=== PATIENT | female | born 1940 | race Caucasian/White ===

== ENCOUNTER 2021-07-26 10:07 | Inpatient (IN) | payer MEDICARE, BC ==
[~2021-07-26] VITALS: Ht 162.6 cm; Wt 71.6 kg
[2021-07-26] MEDS ORDERED: SODIUM CHLORIDE 0.9% 500 ML IV ONE (10:30)
[2021-07-26 11:28] LABS: Basophils # (auto) 0 10 ^3/uL (0-0.2); Basophils % (auto) 0.4 % (0.0-2.0); Eosinophils # (auto) 0 10 ^3/uL (0-0.8); Eosinophils % (auto) 0.2 % (0.0-7.0); Hemoglobin 12.5 g/dL (12.2-16.2); Lymphocytes # (auto) 0.8 10 ^3/uL (0.4-5.4); Lymphocytes % (auto) 6.7 % (10.0-50.0); Mean Corpuscular Hemoglobin 32.5 pg (28.0-32.0); Mean Corpuscular Hgb Conc. 32.8 g/dL (32.0-36.0); Mean Corpuscular Volume 99.1 fL (80.0-100.0); Monocytes # (auto) 1.1 10 ^3/uL (0-1.3); Monocytes % (auto) 8.8 % (0.0-12.0); Neutrophils # (auto) 10.3 10 ^3/uL (1.6-8.6); Neutrophils % (auto) 83.9 % (37.0-80.0); Nucleated Red Blood Cells % 0.1 %; Red Blood Cells 3.84 10^6/uL (4.0-5.20); Red Cell Distribution Width 13.4 % (11.8-14.3); White Blood Cell 12.2 10^3/uL (4.4-10.8)
[2021-07-26 11:42] LABS: Albumin 2.9 g/dL (3.4-5.0); Calcium 8.9 mg/dL (8.5-10.1); Potassium 3.9 mmol/L (3.5-5.1)
[2021-07-26 11:47] LABS: BUN/Creatinine Ratio 27.9; Bilirubin, Total 0.2 mg/dL (0.2-1.0); Total Protein 6.7 g/dL (6.4-8.2)
[2021-07-26] MEDS ORDERED: ENOXAPARIN SOD 60 MG/0.6 ML SYRINGE SC ONE (12:15)
[2021-07-26] MEDS ORDERED: MORPHINE SULFATE INJECTION 2 MG/ML SYRG IV PRN ×3 (14:30→15:30)
[2021-07-26] MEDS ORDERED: LACTATED RINGER'S 1,000 ML IV ONE (14:30)
[2021-07-26] MEDS ORDERED: NITROGLYCERIN 0.4 MG SL TAB SL PRN ×2 (14:30→15:30)
[2021-07-26] MEDS ORDERED: CLINDAMYCIN 600MG IV 50 ML IV ONE (15:30)
[2021-07-26] MEDS ORDERED: FAMOTIDINE (10MG/ML) 2ML VL IV ONE (15:30)
[2021-07-26] MEDS ORDERED: ONDANSETRON HCL 4 MG/2 ML VIAL IV PRN (15:30)
[2021-07-26] MEDS ORDERED: cefTRIAXone 1GM/50ML D5W 50 ML IV ONE (15:30)
[2021-07-26] MEDS ORDERED: DOCUSATE SOD 100 MG CAP PO PRN (15:30)
[2021-07-26] MEDS ORDERED: LORazepam 0.5 MG TAB PO PRN (15:30)
[2021-07-26] MEDS ORDERED: HYDROcodone-ACET 5/325MG TAB PO PRN (15:30)
[2021-07-26] MEDS ORDERED: METOPROLOL TARTRATE 25 MG TAB PO ONE (15:30)
[2021-07-26] MEDS ORDERED: ACETAMINOPHEN 325 MG TAB PO PRN (15:30)
[2021-07-26] MEDS ORDERED: ASPirin 81 mg TAB PO ONE (15:30)
[2021-07-26 17:22] LABS: Cholesterol 157 mg/dL (< 200); HDL Cholesterol 66 mg/dL (40-59); LDL Cholesterol 78 mg/dL (< 100); Triglycerides 46 mg/dL (< 150)
[2021-07-26] MEDS: IPRATROPIUM BROM 0.5 MG/2.5ML INH SOL NEB SCH ×2 (18:45→22:23)
[2021-07-26] MEDS: FAMOTIDINE (10MG/ML) 2ML VL IV SCH (21:27)
[2021-07-26] MEDS: SODIUM CHLORIDE 0.9% 1,000 ML IV SCH (21:27)
[2021-07-26] MEDS: CLINDAMYCIN 600MG IV 50 ML IV SCH (21:27)
[2021-07-26] MEDS: SODIUM BICARBONATE 650 MG TAB PO SCH (21:29)
[2021-07-26] MEDS: METOPROLOL TARTRATE 25 MG TAB PO SCH (21:30)
[2021-07-26] MEDS: ENOXAPARIN SOD 60 MG/0.6 ML SYRINGE SC SCH (21:30)
[2021-07-26] MEDS: hydrALAZINE HCL 20 MG/ML VL IV PRN (21:31)
[2021-07-26 21:37] VITALS: BP_SYST 135; BP_SYST 162; BP_DIAS 87; BP_DIAS 95
[2021-07-26 23:20] VITALS: BP 162/95
[2021-07-27] MEDS ORDERED: ALBUTEROL SULF 2.5 MG/0.5ML(0.5%) NEB SOLN NEB PRN (02:15)
[2021-07-27 05:30] VITALS: BP 136/55
[2021-07-27] MEDS: LEVOTHYROXINE SODIUM 25 MCG TAB PO SCH (06:16)
[2021-07-27] MEDS: LEVOTHYROXINE SODIUM 100 MCG TAB PO SCH (06:16)
[2021-07-27] MEDS: CLINDAMYCIN 600MG IV 50 ML IV SCH (06:16)
[2021-07-27] MEDS: SODIUM BICARBONATE 650 MG TAB PO SCH ×3 (06:16→21:19)
[2021-07-27 08:58] LABS: Basophils # (auto) 0 10 ^3/uL (0-0.2); Basophils % (auto) 0.6 % (0.0-2.0); Calcium 8.7 mg/dL (8.5-10.1); Eosinophils # (auto) 0 10 ^3/uL (0-0.8); Eosinophils % (auto) 0.5 % (0.0-7.0); Hematocrit 36.6 % (36.0-46.0); Hemoglobin 12.1 g/dL (12.2-16.2); Magnesium 1.6 mg/dL (1.6-2.6); Mean Corpuscular Hemoglobin 32.8 pg (28.0-32.0); Mean Corpuscular Hgb Conc. 33.2 g/dL (32.0-36.0); Mean Corpuscular Volume 98.8 fL (80.0-100.0); Monocytes # (auto) 0.6 10 ^3/uL (0-1.3); Monocytes % (auto) 8.4 % (0.0-12.0); Neutrophils % (auto) 75.5 % (37.0-80.0); Nucleated Red Blood Cells % 0.1 %; Potassium 4.1 mmol/L (3.5-5.1); Red Cell Distribution Width 13.5 % (11.8-14.3); White Blood Cell 6.6 10^3/uL (4.4-10.8)
[2021-07-27] MEDS ORDERED: cefTRIAXone 1GM/50ML D5W 50 ML IV SCH (09:00)
[2021-07-27 09:01] LABS: INR 1.08 (0.9-1.15); Partial Thromboplastin Time 27.5 sec (23.6-33.0)
[2021-07-27 09:04] LABS: Albumin 2.6 g/dL (3.4-5.0); BUN/Creatinine Ratio 22.8; Bilirubin, Total 0.4 mg/dL (0.2-1.0); Phosphorus 3.2 mg/dL (2.5-4.90); Total Protein 6.3 g/dL (6.4-8.2); Uric Acid 2.9 mg/dL (2.6-6.0)
[2021-07-27 09:09] VITALS: BP 152/64
[2021-07-27] MEDS ORDERED: ENOXAPARIN SOD 30 MG/0.3 ML SYRINGE SC SCH (10:00)
[2021-07-27] MEDS: FAMOTIDINE (10MG/ML) 2ML VL IV SCH ×2 (10:15→21:19)
[2021-07-27] MEDS: SODIUM CHLORIDE 0.9% 1,000 ML IV SCH (10:15)
[2021-07-27] MEDS: POTASSIUM CHLORIDE 8 MEQ TAB PO SCH (10:15)
[2021-07-27] MEDS: ASPirin 81 mg TAB PO SCH (10:15)
[2021-07-27] MEDS: ALLOPURINOL 100 MG TAB PO SCH (10:16)
[2021-07-27] MEDS: METOPROLOL TARTRATE 25 MG TAB PO SCH ×2 (10:16→21:36)
[2021-07-27] MEDS: ENOXAPARIN SOD 60 MG/0.6 ML SYRINGE SC SCH (10:16)
[2021-07-27] MEDS ORDERED: PIPERACILLIN-TAZOB 3.375GM 100 ML IV SCH (12:00)
[2021-07-27] MEDS: PIPERACILLIN-TAZOB 2.25GM 50 ML IV SCH ×2 (12:43→17:11)
[2021-07-27 12:45] VITALS: BP 150/70
[2021-07-27] MEDS: NIFEdipine 10 MG CAP PO SCH (12:46)
[2021-07-27 13:04] LABS: Urine Bacteria FEW /hpf (None Seen); Urine Blood Negative /uL (Negative); Urine Specific Gravity 1.013 (1.001-1.035); Urine WBC 1 /hpf (0 - 5)
[2021-07-27 13:24] LABS: Alcohol, Urine < 3.0 mg/dL (0-10); Amphetamine Screen, Urine NEGATIVE (NEGATIVE); Barbiturate Scree,Urine NEGATIVE (NEGATIVE); Benzodiazephine Screen, Urine NEGATIVE (NEGATIVE); Cannabinoid Screen, Urine NEGATIVE (NEGATIVE); Cocaine Screen, Urine NEGATIVE (NEGATIVE); Opiate Scree,Urine NEGATIVE (NEGATIVE); Phencyclidine Screen, Urine NEGATIVE (NEGATIVE)
[2021-07-27 16:35] VITALS: BP 114/54
[2021-07-27] MEDS ORDERED: MEMA1CAP2 PO (19:56)
[2021-07-27] MEDS ORDERED: SODI650T PO (19:56)
[2021-07-27] MEDS ORDERED: APIX5TAB PO (19:56)
[2021-07-27] MEDS ORDERED: NIFE-3 PO (19:56)
[2021-07-27] MEDS ORDERED: ASPI-543 PO (19:56)
[2021-07-27] MEDS ORDERED: POTA10TA51 PO (19:56)
[2021-07-27] MEDS ORDERED: LEVO125T7 PO (19:56)
[2021-07-27] MEDS ORDERED: ALEN70TA74 PO (19:56)
[2021-07-27] MEDS ORDERED: FEBU40TA PO (19:56)
[2021-07-27] MEDS: ENOXAPARIN SOD 80 MG/0.8ML SYRINGE SC SCH (21:19)
[2021-07-27 22:00] VITALS: BP 112/50
[2021-07-28] MEDS: SODIUM CHLORIDE 0.9% 1,000 ML IV SCH ×2 (00:50→18:13)
[2021-07-28] MEDS: PIPERACILLIN-TAZOB 2.25GM 50 ML IV SCH ×5 (00:58→23:55)
[2021-07-28 05:00] VITALS: BP 127/70
[2021-07-28] MEDS: SODIUM BICARBONATE 650 MG TAB PO SCH ×3 (06:09→21:46)
[2021-07-28] MEDS: LEVOTHYROXINE SODIUM 100 MCG TAB PO SCH (06:09)
[2021-07-28] MEDS: LEVOTHYROXINE SODIUM 25 MCG TAB PO SCH (06:09)
[2021-07-28 07:26] LABS: Basophils # (auto) 0 10 ^3/uL (0-0.2); Basophils % (auto) 0.8 % (0.0-2.0); Eosinophils # (auto) 0.1 10 ^3/uL (0-0.8); Eosinophils % (auto) 1.9 % (0.0-7.0); Hematocrit 36.7 % (36.0-46.0); Hemoglobin 12.3 g/dL (12.2-16.2); Lymphocytes # (auto) 0.8 10 ^3/uL (0.4-5.4); Lymphocytes % (auto) 18.9 % (10.0-50.0); Mean Corpuscular Hgb Conc. 33.5 g/dL (32.0-36.0); Mean Corpuscular Volume 98.5 fL (80.0-100.0); Monocytes # (auto) 0.4 10 ^3/uL (0-1.3); Monocytes % (auto) 10.2 % (0.0-12.0); Neutrophils # (auto) 2.8 10 ^3/uL (1.6-8.6); Neutrophils % (auto) 68.2 % (37.0-80.0); Nucleated Red Blood Cells % 0.1 %; Red Blood Cells 3.73 10^6/uL (4.0-5.20); Red Cell Distribution Width 13.4 % (11.8-14.3); White Blood Cell 4.1 10^3/uL (4.4-10.8)
[2021-07-28 07:35] LABS: Calcium 8.8 mg/dL (8.5-10.1); Magnesium 2.2 mg/dL (1.6-2.6); Potassium 4.4 mmol/L (3.5-5.1)
[2021-07-28 07:37] LABS: BUN/Creatinine Ratio 15.7
[2021-07-28 08:37] VITALS: BP 132/94
[2021-07-28] MEDS ORDERED: ENOXAPARIN SOD 40 MG/0.4 ML SYRINGE SC SCH (10:00)
[2021-07-28] MEDS: ASPirin 81 mg TAB PO SCH (10:10)
[2021-07-28] MEDS: FAMOTIDINE (10MG/ML) 2ML VL IV SCH ×2 (10:10→21:46)
[2021-07-28] MEDS: POTASSIUM CHLORIDE 8 MEQ TAB PO SCH (10:11)
[2021-07-28] MEDS: METOPROLOL TARTRATE 25 MG TAB PO SCH ×3 (10:13→21:29)
[2021-07-28] MEDS: NIFEdipine 10 MG CAP PO SCH (10:13)
[2021-07-28] MEDS: ALLOPURINOL 100 MG TAB PO SCH (10:14)
[2021-07-28] MEDS: ENOXAPARIN SOD 80 MG/0.8ML SYRINGE SC SCH ×2 (10:14→21:47)
[2021-07-28 17:00] VITALS: BP 157/69
[2021-07-28 22:00] VITALS: BP 139/72
[2021-07-29 05:00] VITALS: BP 157/71
[2021-07-29] MEDS: LEVOTHYROXINE SODIUM 25 MCG TAB PO SCH (06:08)
[2021-07-29] MEDS: PIPERACILLIN-TAZOB 2.25GM 50 ML IV SCH ×3 (06:08→18:55)
[2021-07-29] MEDS: SODIUM BICARBONATE 650 MG TAB PO SCH ×3 (06:08→22:26)
[2021-07-29] MEDS: LEVOTHYROXINE SODIUM 100 MCG TAB PO SCH (06:09)
[2021-07-29 06:32] LABS: Basophils # (auto) 0 10 ^3/uL (0-0.2); Basophils % (auto) 0.7 % (0.0-2.0); Eosinophils # (auto) 0.1 10 ^3/uL (0-0.8); Hematocrit 38.7 % (36.0-46.0); Hemoglobin 12.4 g/dL (12.2-16.2); Lymphocytes # (auto) 0.9 10 ^3/uL (0.4-5.4); Lymphocytes % (auto) 22.1 % (10.0-50.0); Mean Corpuscular Hemoglobin 32.7 pg (28.0-32.0); Mean Corpuscular Volume 102.1 fL (80.0-100.0); Monocytes # (auto) 0.5 10 ^3/uL (0-1.3); Monocytes % (auto) 11.5 % (0.0-12.0); Neutrophils # (auto) 2.6 10 ^3/uL (1.6-8.6); Neutrophils % (auto) 63.7 % (37.0-80.0); Nucleated Red Blood Cells % 0.1 %; Red Blood Cells 3.79 10^6/uL (4.0-5.20); Red Cell Distribution Width 14.1 % (11.8-14.3); White Blood Cell 4.1 10^3/uL (4.4-10.8)
[2021-07-29 07:06] LABS: Potassium 4.4 mmol/L (3.5-5.1)
[2021-07-29 07:13] LABS: BUN/Creatinine Ratio 12.5; Calcium 8.8 mg/dL (8.5-10.1)
[2021-07-29] MEDS ORDERED: OMNIPAQUE ORAL SOLN 500ml 12mg/ml PO ONE (08:12)
[2021-07-29 09:32] VITALS: BP 195/95
[2021-07-29] MEDS: SODIUM CHLORIDE 0.9% 1,000 ML IV SCH (10:10)
[2021-07-29] MEDS ORDERED: POTA10TA32 PO (14:12)
[2021-07-29 15:36] VITALS: BP 157/81
[2021-07-29] MEDS: NIFEdipine 10 MG CAP PO SCH (15:39)
[2021-07-29] MEDS: ASPirin 81 mg TAB PO SCH (15:39)
[2021-07-29] MEDS: ENOXAPARIN SOD 80 MG/0.8ML SYRINGE SC SCH ×2 (15:39→22:27)
[2021-07-29] MEDS: METOPROLOL TARTRATE 25 MG TAB PO SCH ×2 (15:40→22:28)
[2021-07-29] MEDS: POTASSIUM CHLORIDE 8 MEQ TAB PO SCH (15:43)
[2021-07-29] MEDS: ALLOPURINOL 100 MG TAB PO SCH (15:43)
[2021-07-29] MEDS: FAMOTIDINE (10MG/ML) 2ML VL IV SCH ×2 (15:44→22:27)
[2021-07-29 17:12] VITALS: BP 110/63
[2021-07-30 00:53] VITALS: BP 137/70
[2021-07-30] MEDS: PIPERACILLIN-TAZOB 2.25GM 50 ML IV SCH ×4 (01:29→20:11)
[2021-07-30 05:25] VITALS: BP 150/64
[2021-07-30] MEDS: SODIUM BICARBONATE 650 MG TAB PO SCH ×3 (06:36→21:58)
[2021-07-30] MEDS: LEVOTHYROXINE SODIUM 100 MCG TAB PO SCH (06:36)
[2021-07-30] MEDS: hydrALAZINE HCL 20 MG/ML VL IV PRN (06:37)
[2021-07-30] MEDS: LEVOTHYROXINE SODIUM 25 MCG TAB PO SCH (06:37)
[2021-07-30 08:43] VITALS: BP 154/70
[2021-07-30] MEDS: METOPROLOL TARTRATE 25 MG TAB PO SCH ×2 (10:19→21:59)
[2021-07-30] MEDS: ASPirin 81 mg TAB PO SCH (10:19)
[2021-07-30] MEDS: POTASSIUM CHLORIDE 8 MEQ TAB PO SCH (10:19)
[2021-07-30] MEDS: ALLOPURINOL 100 MG TAB PO SCH (10:20)
[2021-07-30] MEDS: ENOXAPARIN SOD 80 MG/0.8ML SYRINGE SC SCH ×2 (10:20→21:59)
[2021-07-30] MEDS: NIFEdipine 10 MG CAP PO SCH (10:20)
[2021-07-30 12:56] VITALS: BP 99/46
[2021-07-30 16:59] VITALS: BP 131/68
[2021-07-30 22:00] VITALS: BP 148/60
[2021-07-31] MEDS: PIPERACILLIN-TAZOB 2.25GM 50 ML IV SCH ×3 (01:20→13:30)
[2021-07-31 05:00] VITALS: BP 157/83
[2021-07-31] MEDS: hydrALAZINE HCL 20 MG/ML VL IV PRN (05:46)
[2021-07-31] MEDS: SODIUM BICARBONATE 650 MG TAB PO SCH (07:08)
[2021-07-31] MEDS: LEVOTHYROXINE SODIUM 100 MCG TAB PO SCH (07:08)
[2021-07-31] MEDS: LEVOTHYROXINE SODIUM 25 MCG TAB PO SCH (07:09)
[2021-07-31 09:00] VITALS: BP 144/75
[2021-07-31] MEDS: NIFEdipine 10 MG CAP PO SCH (10:00)
[2021-07-31] MEDS: ENOXAPARIN SOD 80 MG/0.8ML SYRINGE SC SCH (10:00)
[2021-07-31] MEDS: ASPirin 81 mg TAB PO SCH (10:52)
[2021-07-31] MEDS: POTASSIUM CHLORIDE 8 MEQ TAB PO SCH (10:53)
[2021-07-31] MEDS: METOPROLOL TARTRATE 25 MG TAB PO SCH (10:53)
[2021-07-31] MEDS: ALLOPURINOL 100 MG TAB PO SCH (10:54)
[2021-07-31 12:44] VITALS: BP 151/76
[2021-08-02] MEDS ORDERED: ALENDRONATE SODIUM 10 MG TAB PO SCH (15:30)
== END 2021-07-31 14:05 | disposition home or self-care (01) | DRG 872 ==
LOC: EDUNIT# 10:07 → EDBD 10:07 → ER 10:07 → TELE-CENTR 15:30 → CENTRAL 07-27 11:00
PROVIDERS: ADMIT Hospitalist; ATTEND Internal Medicine
DX: A41.9 Sepsis, unspecified organism (principal); K57.20 Diverticulitis of large intestine with perforation and abscess without bleeding; N17.9 Acute kidney failure, unspecified; I13.0 Hypertensive heart and chronic kidney disease with heart failure and stage 1 through stage 4 chronic kidney disease, or unspecified chronic kidney disease; R65.20 Severe sepsis without septic shock; F01.50 Vascular dementia, unspecified severity, without behavioral disturbance, psychotic disturbance, mood disturbance, and anxiety; I50.9 Heart failure, unspecified; Z20.822 Contact with and (suspected) exposure to COVID-19; E03.9 Hypothyroidism, unspecified; I48.0 Paroxysmal atrial fibrillation; M10.9 Gout, unspecified; M81.0 Age-related osteoporosis without current pathological fracture; I67.2 Cerebral atherosclerosis; N18.9 Chronic kidney disease, unspecified; E78.5 Hyperlipidemia, unspecified; M19.90 Unspecified osteoarthritis, unspecified site; E66.9 Obesity, unspecified; R42 Dizziness and giddiness; R54 Age-related physical debility; K42.9 Umbilical hernia without obstruction or gangrene; Z82.49 Family history of ischemic heart disease and other diseases of the circulatory system; Z83.3 Family history of diabetes mellitus; Z68.27 Body mass index [BMI] 27.0-27.9, adult
CPT/HCPCS: 36415; 70450; 71045; 74176; 80048; 80053; 80061; 80307; 81001; 82306; 83036; 83735; 83880; 83970; 84100; 84443; 84484; 84550; 85025; 85610; 85730; 87040; 87086; 87426; 93005; 93306; 93886; 96361; 96365; 96372; 99291; G0378; J0696; J2543; J3490

== ENCOUNTER 2021-10-19 07:37 | Inpatient (IN) | payer MEDICARE, BC ==
[~2021-10-19] VITALS: Ht 162.6 cm; Wt 80.2 kg
[~2021-10-19 07:37] MED LIST: ALEN70TA74 PO; APIX5TAB PO; ASPI-543 PO; FEBU40TA PO; LEVO125T7 PO; MEMA1CAP2 PO; NIFE-3 PO; POTA10TA32 PO; SODI650T PO
[2021-10-19 08:35] LABS: Basophils # (auto) 0 10 ^3/uL (0-0.2); Basophils % (auto) 0.2 % (0.0-2.0); Eosinophils # (auto) 0 10 ^3/uL (0-0.8); Hematocrit 34.8 % (36.0-46.0); Hemoglobin 11.3 g/dL (12.2-16.2); Lymphocytes # (auto) 0.5 10 ^3/uL (0.4-5.4); Lymphocytes % (auto) 4.7 % (10.0-50.0); Mean Corpuscular Hemoglobin 29.7 pg (28.0-32.0); Mean Corpuscular Hgb Conc. 32.6 g/dL (32.0-36.0); Mean Corpuscular Volume 91.2 fL (80.0-100.0); Monocytes # (auto) 0.8 10 ^3/uL (0-1.3); Monocytes % (auto) 7.5 % (0.0-12.0); Neutrophils # (auto) 9.3 10 ^3/uL (1.6-8.6); Neutrophils % (auto) 87.6 % (37.0-80.0); Red Blood Cells 3.82 10^6/uL (4.0-5.20); Red Cell Distribution Width 15.6 % (11.8-14.3); White Blood Cell 10.6 10^3/uL (4.4-10.8)
[2021-10-19 08:44] LABS: Albumin 2.5 g/dL (3.4-5.0); Calcium 8.8 mg/dL (8.5-10.1); Potassium 4.3 mmol/L (3.5-5.1)
[2021-10-19] MEDS ORDERED: SODIUM CHLORIDE 0.9% 1,000 ML IV ONE (08:45)
[2021-10-19 08:48] LABS: BUN/Creatinine Ratio 11.9; Bilirubin, Total 0.4 mg/dL (0.2-1.0)
[2021-10-19 09:25] LABS: Magnesium 1.6 mg/dL (1.6-2.6)
[2021-10-19] MEDS ORDERED: cefTRIAXone 1GM/50ML D5W 50 ML IV ONE (09:45)
[2021-10-19] MEDS ORDERED: metroNIDAZOLE 500MG/100ML 100 ML IV ONE (09:45)
[2021-10-19] MEDS ORDERED: HYDROmorphone HCL 2 MG/ML VL IV ONE (10:00)
[2021-10-19] MEDS ORDERED: PROMETHAZINE HCL 25 MG/ML 1ML IV ONE (10:00)
[2021-10-19 10:44] LABS: INR 1.26 (0.9-1.15); Partial Thromboplastin Time 32.6 sec (23.6-33.0)
[2021-10-19] MEDS ORDERED: HYDROmorphone HCL 2 MG/ML VL IV PRN (11:30)
[2021-10-19] MEDS ORDERED: DOCUSATE SOD 100 MG CAP PO PRN (11:30)
[2021-10-19] MEDS ORDERED: ATORVASTATIN 20 MG TAB PO ONE (11:30)
[2021-10-19] MEDS ORDERED: CARVEDILOL 3.125 MG TAB PO ONE (11:30)
[2021-10-19] MEDS ORDERED: ACETAMINOPHEN 325 MG TAB PO PRN (11:30)
[2021-10-19] MEDS ORDERED: ALUM & MAG HYDROX-SIMETH LIQ(MAALOX) 30 ML PO PRN (11:30)
[2021-10-19] MEDS ORDERED: MORPHINE SULFATE INJECTION 2 MG/ML SYRG IV PRN (11:30)
[2021-10-19] MEDS ORDERED: NITROGLYCERIN 0.4 MG SL TAB SL PRN (11:30)
[2021-10-19] MEDS ORDERED: HYDROcodone-ACET 5/325MG TAB PO PRN (11:30)
[2021-10-19 12:41] LABS: Basophils # (auto) 0.1 10 ^3/uL (0-0.2); Basophils % (auto) 0.5 % (0.0-2.0); Eosinophils # (auto) 0 10 ^3/uL (0-0.8); Hematocrit 34.8 % (36.0-46.0); Hemoglobin 11.1 g/dL (12.2-16.2); Lymphocytes # (auto) 0.6 10 ^3/uL (0.4-5.4); Mean Corpuscular Hemoglobin 29.3 pg (28.0-32.0); Mean Corpuscular Hgb Conc. 31.8 g/dL (32.0-36.0); Monocytes # (auto) 0.8 10 ^3/uL (0-1.3); Monocytes % (auto) 5.9 % (0.0-12.0); Neutrophils # (auto) 12.9 10 ^3/uL (1.6-8.6); Neutrophils % (auto) 89.6 % (37.0-80.0); Red Blood Cells 3.78 10^6/uL (4.0-5.20); Red Cell Distribution Width 15.7 % (11.8-14.3); White Blood Cell 14.4 10^3/uL (4.4-10.8)
[2021-10-19] MEDS ORDERED: LIDOCAINE 1% (LOCAL ANESTH.) PF 5ml SDV ID ONE (13:45)
[2021-10-19] MEDS ORDERED: LIDOCAINE 1%HCL (LOCAL ANESTH) 10 ML MDV IJ ONE (14:00)
[2021-10-19] MEDS: HEPARIN DRIP/D5W 100UNITS/ML 250 ML IV SCH (14:00)
[2021-10-19 14:58] LABS: Urine Bacteria NONE SEEN /hpf (None Seen); Urine Blood Negative /uL (Negative); Urine Mucus FEW (None Seen); Urine Specific Gravity 1.027 (1.001-1.035); Urine WBC 3 /hpf (0 - 5)
[2021-10-19] MEDS: PIPERACILLIN-TAZOB 3.375GM 100 ML IV SCH ×2 (17:16→20:48)
[2021-10-19] MEDS: SODIUM CHLORIDE 0.9% 1,000 ML IV SCH (17:17)
[2021-10-19] MEDS: ONDANSETRON HCL 4 MG/2 ML VIAL IV PRN (19:16)
[2021-10-19] MEDS: SODIUM CHLOR 0.9% PF (SALINE LOCK) 10ML VIAL/SYR IV SCH (20:48)
[2021-10-19] MEDS: MORPHINE SULFATE INJECTION 2 MG/ML SYRG IV PRN (22:55)
[2021-10-20 03:24] LABS: INR 1.33 (0.9-1.15); Partial Thromboplastin Time 35.3 sec (23.6-33.0)
[2021-10-20] MEDS: PIPERACILLIN-TAZOB 3.375GM 100 ML IV SCH ×2 (04:00→12:50)
[2021-10-20] MEDS: SODIUM CHLORIDE 0.9% 1,000 ML IV SCH ×2 (04:10→20:50)
[2021-10-20] MEDS: SODIUM CHLOR 0.9% PF (SALINE LOCK) 10ML VIAL/SYR IV SCH ×2 (07:33→22:19)
[2021-10-20 08:42] LABS: Basophils # (auto) 0.1 10 ^3/uL (0-0.2); Basophils % (auto) 0.3 % (0.0-2.0); Eosinophils # (auto) 0 10 ^3/uL (0-0.8); Hematocrit 32.1 % (36.0-46.0); Hemoglobin 10.3 g/dL (12.2-16.2); Lymphocytes # (auto) 0.8 10 ^3/uL (0.4-5.4); Lymphocytes % (auto) 4.9 % (10.0-50.0); Mean Corpuscular Hemoglobin 29.2 pg (28.0-32.0); Mean Corpuscular Hgb Conc. 32.2 g/dL (32.0-36.0); Mean Corpuscular Volume 90.7 fL (80.0-100.0); Monocytes # (auto) 1.1 10 ^3/uL (0-1.3); Monocytes % (auto) 6.7 % (0.0-12.0); Neutrophils % (auto) 88.1 % (37.0-80.0); Nucleated Red Blood Cells % 0.1 %; Red Blood Cells 3.53 10^6/uL (4.0-5.20); Red Cell Distribution Width 15.8 % (11.8-14.3)
[2021-10-20 08:51] LABS: Albumin 2.1 g/dL (3.4-5.0); Calcium 8.3 mg/dL (8.5-10.1); Potassium 4.1 mmol/L (3.5-5.1)
[2021-10-20 08:55] LABS: BUN/Creatinine Ratio 15.3; Bilirubin, Total 0.4 mg/dL (0.2-1.0); Total Protein 6.3 g/dL (6.4-8.2)
[2021-10-20 09:01] LABS: INR 1.34 (0.9-1.15)
[2021-10-20 09:05] LABS: Partial Thromboplastin Time > 139.0 sec (23.6-33.0)
[2021-10-20] MEDS: HEPARIN DRIP/D5W 100UNITS/ML 250 ML IV SCH (12:00)
[2021-10-20] MEDS: MORPHINE SULFATE INJECTION 2 MG/ML SYRG IV PRN ×2 (12:35→18:07)
[2021-10-20 13:14] LABS: INR 1.32 (0.9-1.15)
[2021-10-20] MEDS: PANTOPRAZOLE 40 MG/10 ML VIAL INJ IV SCH ×2 (15:27→22:19)
[2021-10-20 16:32] LABS: INR 1.27 (0.9-1.15)
[2021-10-20 16:50] VITALS: BP 146/67
[2021-10-20 17:34] VITALS: BP 146/67
[2021-10-20] MEDS: PIPERACILLIN-TAZOB 2.25GM 50 ML IV SCH (18:07)
[2021-10-20 22:00] VITALS: BP 117/55
[2021-10-21] VITALS (7 sets, daily range): BP systolic 118–152; BP diastolic 60–83
[2021-10-21] MEDS: PIPERACILLIN-TAZOB 2.25GM 50 ML IV SCH ×4 (00:08→18:11)
[2021-10-21 00:19] LABS: INR 1.24 (0.9-1.15); Partial Thromboplastin Time 34.5 sec (23.6-33.0)
[2021-10-21] MEDS ORDERED: HEPARIN SODIUM (PORCINE) 5000 UNITS/ML 1ML VIAL IV ONE (01:15)
[2021-10-21] MEDS: HEPARIN DRIP/D5W 100UNITS/ML 250 ML IV SCH (01:22)
[2021-10-21] MEDS: MORPHINE SULFATE INJECTION 2 MG/ML SYRG IV PRN (06:25)
[2021-10-21 07:27] LABS: Basophils # (auto) 0.1 10 ^3/uL (0-0.2); Basophils % (auto) 0.5 % (0.0-2.0); Eosinophils # (auto) 0 10 ^3/uL (0-0.8); Eosinophils % (auto) 0.1 % (0.0-7.0); Hemoglobin 9.7 g/dL (12.2-16.2); Lymphocytes # (auto) 0.5 10 ^3/uL (0.4-5.4); Lymphocytes % (auto) 3.7 % (10.0-50.0); Mean Corpuscular Hemoglobin 29.5 pg (28.0-32.0); Mean Corpuscular Hgb Conc. 32.3 g/dL (32.0-36.0); Mean Corpuscular Volume 91.3 fL (80.0-100.0); Monocytes % (auto) 6.6 % (0.0-12.0); Neutrophils # (auto) 13.2 10 ^3/uL (1.6-8.6); Neutrophils % (auto) 89.1 % (37.0-80.0); Red Blood Cells 3.29 10^6/uL (4.0-5.20); Red Cell Distribution Width 15.3 % (11.8-14.3); White Blood Cell 14.8 10^3/uL (4.4-10.8)
[2021-10-21 07:38] LABS: INR 1.27 (0.9-1.15)
[2021-10-21 08:02] LABS: Potassium 4.3 mmol/L (3.5-5.1)
[2021-10-21 08:08] LABS: Albumin 1.8 g/dL (3.4-5.0); BUN/Creatinine Ratio 18.9; Bilirubin, Total 0.3 mg/dL (0.2-1.0); Total Protein 5.9 g/dL (6.4-8.2)
[2021-10-21 09:14] LABS: Partial Thromboplastin Time 92.6 sec (23.6-33.0)
[2021-10-21] MEDS: PANTOPRAZOLE 40 MG/10 ML VIAL INJ IV SCH ×2 (09:51→22:33)
[2021-10-21] MEDS: SODIUM CHLOR 0.9% PF (SALINE LOCK) 10ML VIAL/SYR IV SCH ×2 (09:51→22:00)
[2021-10-21] MEDS ORDERED: LORazepam 2MG/ML-1ML VIAL IV ONE (10:30)
[2021-10-21 10:53] LABS: Magnesium 1.9 mg/dL (1.6-2.6)
[2021-10-21 10:59] LABS: Phosphorus 4.2 mg/dL (2.5-4.90); Pre Albumin 5.8 mg/dL (20.0-40.0)
[2021-10-21] MEDS ORDERED: TPN PER PHARMACY 0 ML IV SCH (13:15)
[2021-10-21] MEDS: SODIUM CHLORIDE 0.9% 1,000 ML IV SCH (13:30)
[2021-10-21 17:25] LABS: INR 1.21 (0.9-1.15); Partial Thromboplastin Time 32.8 sec (23.6-33.0)
[2021-10-21] MEDS ORDERED: TPN PER PHARMACY IV NR ×5 (20:00)
[2021-10-22] MEDS ORDERED: DEXTROSE (50%) 50ML SYRG IV SCH
[2021-10-22] MEDS: SODIUM CHLORIDE 0.9% 1,000 ML IV SCH ×2 (00:13→06:30)
[2021-10-22] MEDS: PIPERACILLIN-TAZOB 2.25GM 50 ML IV SCH ×4 (00:16→18:00)
[2021-10-22 05:45] LABS: Basophils # (auto) 0 10 ^3/uL (0-0.2); Basophils % (auto) 0.1 % (0.0-2.0); Eosinophils # (auto) 0.1 10 ^3/uL (0-0.8); Hematocrit 27.6 % (36.0-46.0); Hemoglobin 8.8 g/dL (12.2-16.2); Lymphocytes # (auto) 0.7 10 ^3/uL (0.4-5.4); Lymphocytes % (auto) 5.2 % (10.0-50.0); Mean Corpuscular Hemoglobin 29.1 pg (28.0-32.0); Monocytes # (auto) 0.9 10 ^3/uL (0-1.3); Monocytes % (auto) 7.1 % (0.0-12.0); Neutrophils # (auto) 11.3 10 ^3/uL (1.6-8.6); Neutrophils % (auto) 86.6 % (37.0-80.0); Red Blood Cells 3.03 10^6/uL (4.0-5.20); Red Cell Distribution Width 15.7 % (11.8-14.3); White Blood Cell 13.1 10^3/uL (4.4-10.8)
[2021-10-22 05:59] LABS: Chloride 110 mmol/L (98-107); Sodium 141 mmol/L (136-145)
[2021-10-22] MEDS: InsuLIN REG 1unit/0.01ml Soln (100units/ml) SC SCH ×4 (06:00→18:00)
[2021-10-22 06:03] LABS: Albumin 1.8 g/dL (3.4-5.0); Anion Gap 4 (5-15); BUN/Creatinine Ratio 25.6; Blood Urea Nitrogen 50 mg/dL (7-18); Calcium 8.3 mg/dL (8.5-10.1); Carbon Dioxide 27 mmol/L (21-32); GFR African American 32 mL/min; GFR Non-African American 26 mL/min; Glucose 119 mg/dL (74-106)
[2021-10-22 06:06] LABS: Alanine Aminotransferase < 6 U/L (13-56); Alkaline Phosphatase 45 U/L (45-117); Aspartate Aminotransferase 9 U/L (15-37); Bilirubin, Total 0.2 mg/dL (0.2-1.0); Phosphorus 2.1 mg/dL (2.5-4.90)
[2021-10-22] MEDS: ACCU-CHEK COMFORT CURVE STRIP VI SCH ×4 (06:28→18:00)
[2021-10-22 07:35] VITALS: BP 159/89
[2021-10-22] MEDS ORDERED: POTASSIUM PHOSPHATE 22 MEQ in SODIUM CHL 0.9% 100 ML IV ONE (08:45)
[2021-10-22] MEDS: SODIUM CHLOR 0.9% PF (SALINE LOCK) 10ML VIAL/SYR IV SCH ×2 (09:41→22:10)
[2021-10-22] MEDS: PANTOPRAZOLE 40 MG/10 ML VIAL INJ IV SCH ×2 (09:41→22:10)
[2021-10-22 11:40] VITALS: BP 178/77
[2021-10-22] MEDS ORDERED: GOLYTELY 4L KIT PO ONE (15:00)
[2021-10-22 16:00] VITALS: BP 180/81
[2021-10-22] MEDS ORDERED: TPN PER PHARMACY IV NR ×6 (20:00)
[2021-10-22 20:30] VITALS: BP 171/68
[2021-10-22 22:00] VITALS: BP 171/60
[2021-10-23] MEDS: PIPERACILLIN-TAZOB 2.25GM 50 ML IV SCH ×5 (00:11→23:28)
[2021-10-23] MEDS: ACCU-CHEK COMFORT CURVE STRIP VI SCH ×5 (00:12→23:28)
[2021-10-23] MEDS: MORPHINE SULFATE INJECTION 2 MG/ML SYRG IV PRN (03:45)
[2021-10-23] MEDS: ONDANSETRON HCL 4 MG/2 ML VIAL IV PRN ×2 (03:45→06:06)
[2021-10-23 05:00] VITALS: BP 149/53
[2021-10-23 05:53] LABS: Basophils # (auto) 0 10 ^3/uL (0-0.2); Basophils % (auto) 0.3 % (0.0-2.0); Eosinophils # (auto) 0.1 10 ^3/uL (0-0.8); Mean Corpuscular Hemoglobin 30.2 pg (28.0-32.0); Mean Corpuscular Hgb Conc. 33.1 g/dL (32.0-36.0); Mean Corpuscular Volume 91.3 fL (80.0-100.0)
[2021-10-23 05:57] LABS: Hematocrit 23.6 % (36.0-46.0); Hemoglobin 7.8 g/dL (12.2-16.2); Lymphocytes # (auto) 0.4 10 ^3/uL (0.4-5.4); Lymphocytes % (auto) 4.7 % (10.0-50.0); Monocytes # (auto) 0.8 10 ^3/uL (0-1.3); Monocytes % (auto) 8.7 % (0.0-12.0); Neutrophils % (auto) 85.3 % (37.0-80.0); Red Blood Cells 2.59 10^6/uL (4.0-5.20); Red Cell Distribution Width 15.4 % (11.8-14.3); White Blood Cell 9.3 10^3/uL (4.4-10.8)
[2021-10-23] MEDS: InsuLIN REG 1unit/0.01ml Soln (100units/ml) SC SCH ×5 (06:00→23:28)
[2021-10-23 06:12] LABS: Albumin 1.6 g/dL (3.4-5.0); Anion Gap 5 (5-15); Blood Urea Nitrogen 41 mg/dL (7-18); Calcium 8.3 mg/dL (8.5-10.1); Carbon Dioxide 27 mmol/L (21-32); Chloride 113 mmol/L (98-107); Glucose 135 mg/dL (74-106); Magnesium 1.5 mg/dL (1.6-2.6); Potassium 3.6 mmol/L (3.5-5.1); Sodium 145 mmol/L (136-145)
[2021-10-23 06:14] LABS: Alanine Aminotransferase < 6 U/L (13-56); Aspartate Aminotransferase 11 U/L (15-37); BUN/Creatinine Ratio 31.5; GFR African American 50 mL/min; GFR Non-African American 42 mL/min
[2021-10-23 06:18] LABS: Alkaline Phosphatase 39 U/L (45-117); Bilirubin, Total 0.3 mg/dL (0.2-1.0); Phosphorus 1.3 mg/dL (2.5-4.90); Total Protein 5.6 g/dL (6.4-8.2)
[2021-10-23 08:00] VITALS: BP 171/68
[2021-10-23 09:00] VITALS: BP 140/64
[2021-10-23] MEDS: MAGNESIUM SULFATE 1GM/100ML 100 ML IV SCH ×2 (09:54→12:54)
[2021-10-23] MEDS ORDERED: POTASSIUM PHOSPHATE 44 MEQ in D5W 5% 250 ML IV ONE (10:00)
[2021-10-23] MEDS: PANTOPRAZOLE 40 MG/10 ML VIAL INJ IV SCH ×2 (10:00→21:19)
[2021-10-23] MEDS: SODIUM CHLOR 0.9% PF (SALINE LOCK) 10ML VIAL/SYR IV SCH ×2 (10:02→22:08)
[2021-10-23 13:00] VITALS: BP 151/83
[2021-10-23] MEDS: SODIUM CHLORIDE 0.9% 1,000 ML IV SCH (15:30)
[2021-10-23 17:17] VITALS: BP 147/70
[2021-10-23] MEDS: TPN PER PHARMACY IV NR ×7 (20:10)
[2021-10-23 22:00] VITALS: BP 175/93
[2021-10-23] MEDS ORDERED: hydrALAZINE HCL 20 MG/ML VL IV ONE (22:45)
[2021-10-24] VITALS (11 sets, daily range): BP systolic 86–148; BP diastolic 52–76
[2021-10-24] MEDS: SODIUM CHLORIDE 0.9% 1,000 ML IV SCH (02:41)
[2021-10-24] MEDS: ONDANSETRON HCL 4 MG/2 ML VIAL IV PRN (03:38)
[2021-10-24] MEDS: MORPHINE SULFATE INJECTION 2 MG/ML SYRG IV PRN (03:39)
[2021-10-24] MEDS: PIPERACILLIN-TAZOB 2.25GM 50 ML IV SCH ×3 (05:29→18:24)
[2021-10-24] MEDS: ACCU-CHEK COMFORT CURVE STRIP VI SCH ×3 (05:30→18:29)
[2021-10-24] MEDS: InsuLIN REG 1unit/0.01ml Soln (100units/ml) SC SCH ×3 (05:35→18:00)
[2021-10-24 06:53] LABS: Basophils # (auto) 0 10 ^3/uL (0-0.2); Eosinophils # (auto) 0.1 10 ^3/uL (0-0.8); Hemoglobin 7.3 g/dL (12.2-16.2); Monocytes # (auto) 0.3 10 ^3/uL (0-1.3)
[2021-10-24 06:56] LABS: Basophils % (auto) 0.3 % (0.0-2.0); Eosinophils % (auto) 0.9 % (0.0-7.0); Hematocrit 22.8 % (36.0-46.0); Mean Corpuscular Hemoglobin 29.1 pg (28.0-32.0); Monocytes % (auto) 3.2 % (0.0-12.0); Neutrophils # (auto) 8.2 10 ^3/uL (1.6-8.6); Neutrophils % (auto) 85.6 % (37.0-80.0); Nucleated Red Blood Cells % 0.1 %; Red Blood Cells 2.51 10^6/uL (4.0-5.20); White Blood Cell 9.6 10^3/uL (4.4-10.8)
[2021-10-24 07:30] LABS: Potassium 3.2 mmol/L (3.5-5.1)
[2021-10-24 07:42] LABS: Albumin 1.7 g/dL (3.4-5.0); BUN/Creatinine Ratio 32.1; Calcium 8.5 mg/dL (8.5-10.1); Magnesium 1.8 mg/dL (1.6-2.6)
[2021-10-24 07:45] LABS: Bilirubin, Total 0.2 mg/dL (0.2-1.0); Phosphorus 1.7 mg/dL (2.5-4.90); Total Protein 5.8 g/dL (6.4-8.2)
[2021-10-24] MEDS ORDERED: POTASSIUM PHOSPHATE 44 MEQ in D5W 5% 250 ML IV ONE (09:15)
[2021-10-24] MEDS: PANTOPRAZOLE 40 MG/10 ML VIAL INJ IV SCH ×2 (10:28→21:38)
[2021-10-24] MEDS: SODIUM CHLOR 0.9% PF (SALINE LOCK) 10ML VIAL/SYR IV SCH ×2 (10:50→21:38)
[2021-10-24 13:56] LABS: INR 1.1 (0.9-1.15); Partial Thromboplastin Time 25.9 sec (23.6-33.0)
[2021-10-24] MEDS ORDERED: DexAMETHasone SOD PHOS 10MG/1ML VIAL INJ ONE (14:41)
[2021-10-24] MEDS ORDERED: ETOMIDATE (2MG/ML) 20ML VIAL IV ONE (14:41)
[2021-10-24] MEDS ORDERED: ROCURONIUM 10MG/ML 10ML VIAL IV ONE (14:41)
[2021-10-24] MEDS ORDERED: MIDAZOLAM HCL 2MG/2ML 2ml VIAL (1mg/ml) ONE (14:41)
[2021-10-24] MEDS ORDERED: LIDOCAINE 2% (LOCAL ANESTH.) PF 5ml SDV ONE (14:41)
[2021-10-24] MEDS ORDERED: ePHEDrine SULFATE 50 MG/ML AMP ONE (14:41)
[2021-10-24] MEDS ORDERED: fentaNYL CITRATE 5 ML ONE (14:42)
[2021-10-24] MEDS ORDERED: HYDROmorphone HCL 2 MG/ML VL ONE (16:05)
[2021-10-24] MEDS: BUPIVACAINE 0.25% INJ 50ML VIAL ONE ×2 (16:05→18:00)
[2021-10-24] MEDS: MIDAZOLAM DRIP 50 mg/50mL 50 ML IV SCH (18:00)
[2021-10-24] MEDS ORDERED: PROPOFOL 100 ML IV ONE (18:04)
[2021-10-24] MEDS: PROPOFOL 100 ML IV SCH (18:24)
[2021-10-24] MEDS: TPN PER PHARMACY IV NR ×7 (19:53)
[2021-10-24] MEDS ORDERED: TPN PER PHARMACY IV NR ×7 (20:00)
[2021-10-24] MEDS: fentaNYL Drip 2500mCg/250mlNS 250 ML IV SCH (21:41)
[2021-10-24] MEDS: NOREPINEPHRINE 8 MG/250ML KIT 250 ML IV SCH (21:41)
[2021-10-24 22:11] LABS: Eosinophils # (auto) 0 10 ^3/uL (0-0.8)
[2021-10-24 22:14] LABS: Basophils # (auto) 0.2 10 ^3/uL (0-0.2); Basophils % (auto) 1.4 % (0.0-2.0); Hematocrit 23.4 % (36.0-46.0); Hemoglobin 7.4 g/dL (12.2-16.2); Lymphocytes # (auto) 0.3 10 ^3/uL (0.4-5.4); Lymphocytes % (auto) 2.4 % (10.0-50.0); Mean Corpuscular Hemoglobin 28.8 pg (28.0-32.0); Mean Corpuscular Hgb Conc. 31.5 g/dL (32.0-36.0); Mean Corpuscular Volume 91.3 fL (80.0-100.0); Monocytes # (auto) 0.5 10 ^3/uL (0-1.3); Monocytes % (auto) 3.5 % (0.0-12.0); Neutrophils # (auto) 12.2 10 ^3/uL (1.6-8.6); Neutrophils % (auto) 92.7 % (37.0-80.0); Red Blood Cells 2.56 10^6/uL (4.0-5.20); Red Cell Distribution Width 15.7 % (11.8-14.3); White Blood Cell 13.2 10^3/uL (4.4-10.8)
[2021-10-24 22:28] LABS: BUN/Creatinine Ratio 35.2; Calcium 7.9 mg/dL (8.5-10.1); Potassium 3.6 mmol/L (3.5-5.1)
[2021-10-25] VITALS (30 sets, daily range): BP systolic 73–187; BP diastolic 36–78
[2021-10-25] MEDS: PIPERACILLIN-TAZOB 2.25GM 50 ML IV SCH ×4 (00:03→17:45)
[2021-10-25] MEDS: ACCU-CHEK COMFORT CURVE STRIP VI SCH ×4 (00:03→17:47)
[2021-10-25] MEDS: InsuLIN REG 1unit/0.01ml Soln (100units/ml) SC SCH ×4 (00:15→17:47)
[2021-10-25 04:41] LABS: Basophils # (auto) 0 10 ^3/uL (0-0.2); Basophils % (auto) 0.1 % (0.0-2.0); Eosinophils # (auto) 0 10 ^3/uL (0-0.8); Lymphocytes # (auto) 0.6 10 ^3/uL (0.4-5.4); Monocytes # (auto) 0.6 10 ^3/uL (0-1.3)
[2021-10-25 04:44] LABS: Hematocrit 21.1 % (36.0-46.0); Lymphocytes % (auto) 4.3 % (10.0-50.0); Mean Corpuscular Hemoglobin 30.4 pg (28.0-32.0); Mean Corpuscular Hgb Conc. 33.2 g/dL (32.0-36.0); Mean Corpuscular Volume 91.5 fL (80.0-100.0); Monocytes % (auto) 4.7 % (0.0-12.0); Neutrophils % (auto) 90.9 % (37.0-80.0); White Blood Cell 13.2 10^3/uL (4.4-10.8)
[2021-10-25 05:01] LABS: Potassium 3.2 mmol/L (3.5-5.1)
[2021-10-25] MEDS: hydrALAZINE HCL 20 MG/ML VL IV PRN (05:01)
[2021-10-25 05:09] LABS: Albumin 1.5 g/dL (3.4-5.0); Calcium 8.1 mg/dL (8.5-10.1)
[2021-10-25 05:39] LABS: BUN/Creatinine Ratio 31.7; Bilirubin, Total 0.2 mg/dL (0.2-1.0); Phosphorus 2.2 mg/dL (2.5-4.90); Total Protein 5.5 g/dL (6.4-8.2)
[2021-10-25] MEDS: D5W/SOD CHLO 0.9% 1,000 ML IV SCH ×2 (08:30→21:27)
[2021-10-25] MEDS: SODIUM CHLOR 0.9% PF (SALINE LOCK) 10ML VIAL/SYR IV SCH ×2 (09:35→21:29)
[2021-10-25] MEDS: PANTOPRAZOLE 40 MG/10 ML VIAL INJ IV SCH ×2 (09:35→21:29)
[2021-10-25] MEDS: PROPOFOL 100 ML IV SCH (09:59)
[2021-10-25] MEDS ORDERED: POTASSIUM EFFERVESENT TAB 25 MEQ GT ONE (10:00)
[2021-10-25] MEDS ORDERED: FUROSEMIDE 40 MG/4 ML VIAL IV ONE (10:45)
[2021-10-25] MEDS ORDERED: POTASSIUM PHOSPHATE 44 MEQ in D5W 5% 250 ML IV ONE (11:00)
[2021-10-25] MEDS ORDERED: SODIUM FERR GLUC 62.5MG/5ML 125 MG in SODIUM CHL 0.9% 100 ML IV ONE (11:45)
[2021-10-25 12:53] LABS: Phosphorus 2.4 mg/dL (2.5-4.90)
[2021-10-25] MEDS: fentaNYL Drip 2500mCg/250mlNS 250 ML IV SCH (17:41)
[2021-10-25] MEDS: NOREPINEPHRINE 8 MG/250ML KIT 250 ML IV SCH (17:42)
[2021-10-25] MEDS: MIDAZOLAM DRIP 50 mg/50mL 50 ML IV SCH (17:42)
[2021-10-25] MEDS ORDERED: TPN PER PHARMACY IV NR ×8 (20:00)
[2021-10-26] VITALS (28 sets, daily range): BP systolic 106–170; BP diastolic 47–92
[2021-10-26] MEDS: ACCU-CHEK COMFORT CURVE STRIP VI SCH ×4 (00:19→18:00)
[2021-10-26] MEDS: PIPERACILLIN-TAZOB 2.25GM 50 ML IV SCH ×4 (00:19→18:42)
[2021-10-26 04:42] LABS: Basophils # (auto) 0 10 ^3/uL (0-0.2); Eosinophils # (auto) 0 10 ^3/uL (0-0.8); Monocytes # (auto) 1.4 10 ^3/uL (0-1.3); Red Cell Distribution Width 16.2 % (11.8-14.3)
[2021-10-26 04:45] LABS: Basophils % (auto) 0.1 % (0.0-2.0); Eosinophils % (auto) 0.1 % (0.0-7.0); Hematocrit 20.6 % (36.0-46.0); Lymphocytes # (auto) 0.7 10 ^3/uL (0.4-5.4); Lymphocytes % (auto) 3.6 % (10.0-50.0); Mean Corpuscular Hemoglobin 29.9 pg (28.0-32.0); Mean Corpuscular Hgb Conc. 33.2 g/dL (32.0-36.0); Mean Corpuscular Volume 90.2 fL (80.0-100.0); Neutrophils # (auto) 17.7 10 ^3/uL (1.6-8.6); Neutrophils % (auto) 89.2 % (37.0-80.0); Red Blood Cells 2.29 10^6/uL (4.0-5.20); White Blood Cell 19.9 10^3/uL (4.4-10.8)
[2021-10-26 04:49] LABS: Hemoglobin 6.8 g/dL (12.2-16.2)
[2021-10-26 04:58] LABS: Albumin 1.3 g/dL (3.4-5.0); Calcium 7.9 mg/dL (8.5-10.1); Potassium 4.1 mmol/L (3.5-5.1)
[2021-10-26 05:02] LABS: BUN/Creatinine Ratio 28.2; Bilirubin, Total 0.2 mg/dL (0.2-1.0); Phosphorus 5.5 mg/dL (2.5-4.90); Total Protein 5.6 g/dL (6.4-8.2)
[2021-10-26] MEDS: InsuLIN REG 1unit/0.01ml Soln (100units/ml) SC SCH ×4 (06:00→18:00)
[2021-10-26] MEDS: PROPOFOL 100 ML IV SCH ×2 (08:16→23:00)
[2021-10-26] MEDS ORDERED: EPOETIN ALFA-EPBX 10,000 UNIT/1ML VIAL SC ONE (08:30)
[2021-10-26] MEDS: SODIUM BICARBONATE 50ML VIAL 150 ML in D5W 5% 1,000 ML IV SCH ×2 (10:33→19:45)
[2021-10-26] MEDS: SODIUM CHLOR 0.9% PF (SALINE LOCK) 10ML VIAL/SYR IV SCH ×2 (10:51→21:31)
[2021-10-26] MEDS: PANTOPRAZOLE 40 MG/10 ML VIAL INJ IV SCH ×2 (10:51→21:31)
[2021-10-26] MEDS ORDERED: FUROSEMIDE 40 MG/4 ML VIAL IV ONE (11:00)
[2021-10-26] MEDS ORDERED: SODIUM FERR GLUC 62.5MG/5ML 125 MG in SODIUM CHL 0.9% 100 ML IV SCH (12:00)
[2021-10-26] MEDS: SODIUM FERR GLUC 62.5MG/5ML 125 MG in SODIUM CHL 0.9% 100 ML IV SCH (12:00)
[2021-10-26] MEDS ORDERED: LIDOCAINE 1% (LOCAL ANESTH.) PF 5ml SDV ID ONE (18:00)
[2021-10-26] MEDS: MIDAZOLAM DRIP 50 mg/50mL 50 ML IV SCH (18:00)
[2021-10-26] MEDS: NOREPINEPHRINE 8 MG/250ML KIT 250 ML IV SCH (18:00)
[2021-10-26] MEDS: fentaNYL Drip 2500mCg/250mlNS 250 ML IV SCH (18:00)
[2021-10-26] MEDS ORDERED: TPN PER PHARMACY IV NR ×6 (20:00)
[2021-10-27] VITALS (24 sets, daily range): BP systolic 105–152; BP diastolic 48–105
[2021-10-27] MEDS: PROPOFOL 100 ML IV SCH ×2 (05:30→11:26)
[2021-10-27 05:47] LABS: Albumin 1.3 g/dL (3.4-5.0); Potassium 3.9 mmol/L (3.5-5.1)
[2021-10-27 05:49] LABS: BUN/Creatinine Ratio 29.7; Bilirubin, Total 0.2 mg/dL (0.2-1.0); Phosphorus 5.2 mg/dL (2.5-4.90); Total Protein 5.4 g/dL (6.4-8.2)
[2021-10-27] MEDS: ACCU-CHEK COMFORT CURVE STRIP VI SCH ×4 (06:00→18:00)
[2021-10-27] MEDS: InsuLIN REG 1unit/0.01ml Soln (100units/ml) SC SCH ×4 (06:00→18:00)
[2021-10-27] MEDS: PIPERACILLIN-TAZOB 2.25GM 50 ML IV SCH ×4 (06:00→18:00)
[2021-10-27] MEDS: SODIUM BICARBONATE 50ML VIAL 150 ML in D5W 5% 1,000 ML IV SCH (07:15)
[2021-10-27] MEDS: SODIUM CHLOR 0.9% PF (SALINE LOCK) 10ML VIAL/SYR IV SCH ×2 (09:36→22:10)
[2021-10-27] MEDS: PANTOPRAZOLE 40 MG/10 ML VIAL INJ IV SCH ×2 (09:36→22:00)
[2021-10-27] MEDS ORDERED: FUROSEMIDE 40 MG/4 ML VIAL IV ONE (13:00)
[2021-10-27] MEDS ORDERED: VANCOMYCIN PER PHARMACY 0 MG IV SCH (13:00)
[2021-10-27] MEDS ORDERED: VANCOMYCIN 1GM/250ML 250 ML IV ONE (13:30)
[2021-10-27] MEDS: SODIUM FERR GLUC 62.5MG/5ML 125 MG in SODIUM CHL 0.9% 100 ML IV SCH (13:46)
[2021-10-27] MEDS: fentaNYL Drip 2500mCg/250mlNS 250 ML IV SCH (18:00)
[2021-10-27] MEDS: NOREPINEPHRINE 8 MG/250ML KIT 250 ML IV SCH (18:00)
[2021-10-27] MEDS: MIDAZOLAM DRIP 50 mg/50mL 50 ML IV SCH (18:00)
[2021-10-27] MEDS ORDERED: TPN PER PHARMACY IV NR ×7 (20:00)
[2021-10-27] MEDS: MUPIROCIN 2% OINT 15gm or 22gm EACHNOSTRI SCH (22:10)
[2021-10-28] VITALS (10 sets, daily range): BP systolic 103–119; BP diastolic 49–62
[2021-10-28 03:38] LABS: Hematocrit 17.8 % (36.0-46.0)
[2021-10-28 03:51] LABS: Albumin 1.1 g/dL (3.4-5.0); Anion Gap 7 (5-15); Blood Urea Nitrogen 61 mg/dL (7-18); Calcium 8.2 mg/dL (8.5-10.1); Carbon Dioxide 29 mmol/L (21-32); Chloride 100 mmol/L (98-107); Potassium 3.1 mmol/L (3.5-5.1); Sodium 136 mmol/L (136-145)
[2021-10-28 03:56] LABS: Hemoglobin 5.9 g/dL (12.2-16.2)
[2021-10-28 03:58] LABS: Alanine Aminotransferase < 6 U/L (13-56); Alkaline Phosphatase 80 U/L (45-117); Aspartate Aminotransferase 10 U/L (15-37); BUN/Creatinine Ratio 32.4; Bilirubin, Total 0.2 mg/dL (0.2-1.0); GFR African American 33 mL/min; GFR Non-African American 27 mL/min; Glucose 114 mg/dL (74-106); Phosphorus 3.8 mg/dL (2.5-4.90); Pre Albumin 9.5 mg/dL (20.0-40.0); Total Protein 5.2 g/dL (6.4-8.2); Triglycerides 104 mg/dL (< 150)
[2021-10-28] MEDS: InsuLIN REG 1unit/0.01ml Soln (100units/ml) SC SCH ×4 (06:00→18:00)
[2021-10-28] MEDS: PIPERACILLIN-TAZOB 2.25GM 50 ML IV SCH ×4 (06:00→18:29)
[2021-10-28] MEDS: ACCU-CHEK COMFORT CURVE STRIP VI SCH ×4 (06:00→18:14)
[2021-10-28] MEDS: PANTOPRAZOLE 40 MG/10 ML VIAL INJ IV SCH ×2 (10:00→23:17)
[2021-10-28] MEDS: SODIUM CHLOR 0.9% PF (SALINE LOCK) 10ML VIAL/SYR IV SCH ×2 (10:00→22:00)
[2021-10-28] MEDS: MUPIROCIN 2% OINT 15gm or 22gm EACHNOSTRI SCH ×2 (10:00→23:17)
[2021-10-28] MEDS: POTASSIUM CHL 10MEQ/50ML 50 ML IV SCH ×4 (11:30→14:30)
[2021-10-28] MEDS ORDERED: FUROSEMIDE 40 MG/4 ML VIAL IV ONE (11:30)
[2021-10-28] MEDS ORDERED: POTASSIUM CHL 10MEQ/50ML 50 ML IV SCH (11:30)
[2021-10-28] MEDS: SODIUM FERR GLUC 62.5MG/5ML 125 MG in SODIUM CHL 0.9% 100 ML IV SCH (12:00)
[2021-10-28] MEDS ORDERED: VANCOMYCIN 1GM/250ML 250 ML IV ONE (13:00)
[2021-10-28] MEDS: EPOETIN ALFA-EPBX 10,000 UNIT/1ML VIAL SC SCH (15:06)
[2021-10-28] MEDS: fentaNYL Drip 2500mCg/250mlNS 250 ML IV SCH (18:00)
[2021-10-28] MEDS: NOREPINEPHRINE 8 MG/250ML KIT 250 ML IV SCH (18:00)
[2021-10-28] MEDS: MIDAZOLAM DRIP 50 mg/50mL 50 ML IV SCH (18:00)
[2021-10-28] MEDS: PROPOFOL 100 ML IV SCH (18:13)
[2021-10-28] MEDS ORDERED: TPN PER PHARMACY IV NR ×9 (20:00)
[2021-10-29] VITALS (25 sets, daily range): BP systolic 92–146; BP diastolic 49–79
[2021-10-29] MEDS: ACCU-CHEK COMFORT CURVE STRIP VI SCH ×4 (00:23→18:19)
[2021-10-29] MEDS: PIPERACILLIN-TAZOB 2.25GM 50 ML IV SCH ×4 (01:02→18:47)
[2021-10-29] MEDS: InsuLIN REG 1unit/0.01ml Soln (100units/ml) SC SCH ×4 (05:17→18:00)
[2021-10-29 05:26] LABS: Basophils # (auto) 0.1 10 ^3/uL (0-0.2); Eosinophils # (auto) 0.2 10 ^3/uL (0-0.8); Lymphocytes # (auto) 0.8 10 ^3/uL (0.4-5.4); Mean Corpuscular Hgb Conc. 32.2 g/dL (32.0-36.0); Monocytes # (auto) 1.2 10 ^3/uL (0-1.3); Nucleated Red Blood Cells % 0.2 %
[2021-10-29 05:27] LABS: Basophils % (auto) 0.5 % (0.0-2.0); Eosinophils % (auto) 1.3 % (0.0-7.0); Hematocrit 17.6 % (36.0-46.0); Lymphocytes % (auto) 6.4 % (10.0-50.0); Mean Corpuscular Hemoglobin 28.4 pg (28.0-32.0); Mean Corpuscular Volume 88.1 fL (80.0-100.0); Neutrophils # (auto) 10.8 10 ^3/uL (1.6-8.6); Neutrophils % (auto) 82.8 % (37.0-80.0); Red Cell Distribution Width 16.2 % (11.8-14.3)
[2021-10-29 05:43] LABS: Hemoglobin 5.7 g/dL (12.2-16.2)
[2021-10-29 05:49] LABS: Albumin 1.1 g/dL (3.4-5.0); Anion Gap 6 (5-15); Blood Urea Nitrogen 62 mg/dL (7-18); Calcium 8.3 mg/dL (8.5-10.1); Carbon Dioxide 29 mmol/L (21-32); Chloride 99 mmol/L (98-107); Glucose 100 mg/dL (74-106); Potassium 3.8 mmol/L (3.5-5.1); Sodium 134 mmol/L (136-145)
[2021-10-29 05:54] LABS: Alanine Aminotransferase < 6 U/L (13-56); Alkaline Phosphatase 90 U/L (45-117); Aspartate Aminotransferase 14 U/L (15-37); BUN/Creatinine Ratio 32.3; Bilirubin, Total 0.3 mg/dL (0.2-1.0); GFR African American 32 mL/min; GFR Non-African American 27 mL/min; Phosphorus 3.4 mg/dL (2.5-4.90); Total Protein 5.8 g/dL (6.4-8.2)
[2021-10-29] MEDS: PANTOPRAZOLE 40 MG/10 ML VIAL INJ IV SCH ×2 (11:10→23:01)
[2021-10-29] MEDS: MUPIROCIN 2% OINT 15gm or 22gm EACHNOSTRI SCH ×2 (11:10→23:01)
[2021-10-29] MEDS: SODIUM CHLOR 0.9% PF (SALINE LOCK) 10ML VIAL/SYR IV SCH ×2 (11:10→23:01)
[2021-10-29] MEDS: SODIUM FERR GLUC 62.5MG/5ML 125 MG in SODIUM CHL 0.9% 100 ML IV SCH (12:10)
[2021-10-29] MEDS ORDERED: MAGNESIUM SULFATE 1GM/100ML 100 ML IV ONE (13:00)
[2021-10-29] MEDS: MIDAZOLAM DRIP 50 mg/50mL 50 ML IV SCH (18:00)
[2021-10-29] MEDS: fentaNYL Drip 2500mCg/250mlNS 250 ML IV SCH (18:00)
[2021-10-29] MEDS: NOREPINEPHRINE 8 MG/250ML KIT 250 ML IV SCH (18:00)
[2021-10-29] MEDS ORDERED: TPN PER PHARMACY IV NR ×9 (20:00)
[2021-10-29] MEDS: LINEZOLID 600MG/300ML 300 ML IV SCH (23:01)
[2021-10-29] MEDS: PROPOFOL 100 ML IV SCH ×2 (23:27)
[2021-10-30] VITALS (50 sets, daily range): BP systolic 84–158; BP diastolic 49–66
[2021-10-30] MEDS: ACCU-CHEK COMFORT CURVE STRIP VI SCH ×4 (00:12→18:45)
[2021-10-30] MEDS: InsuLIN REG 1unit/0.01ml Soln (100units/ml) SC SCH ×4 (00:14→18:45)
[2021-10-30] MEDS: PIPERACILLIN-TAZOB 2.25GM 50 ML IV SCH ×4 (00:19→18:50)
[2021-10-30 03:11] LABS: Basophils # (auto) 0 10 ^3/uL (0-0.2); Eosinophils # (auto) 0.2 10 ^3/uL (0-0.8); Eosinophils % (auto) 1.7 % (0.0-7.0); Hematocrit 16.3 % (36.0-46.0); Mean Corpuscular Volume 88.6 fL (80.0-100.0); Red Blood Cells 1.84 10^6/uL (4.0-5.20); White Blood Cell 10.9 10^3/uL (4.4-10.8)
[2021-10-30 03:13] LABS: Basophils % (auto) 0.3 % (0.0-2.0); Lymphocytes # (auto) 0.7 10 ^3/uL (0.4-5.4); Lymphocytes % (auto) 6.5 % (10.0-50.0); Mean Corpuscular Hemoglobin 28.9 pg (28.0-32.0); Mean Corpuscular Hgb Conc. 32.6 g/dL (32.0-36.0); Monocytes # (auto) 0.9 10 ^3/uL (0-1.3); Monocytes % (auto) 8.1 % (0.0-12.0); Neutrophils # (auto) 9.1 10 ^3/uL (1.6-8.6); Neutrophils % (auto) 83.4 % (37.0-80.0); Nucleated Red Blood Cells % 0.1 %; Red Cell Distribution Width 16.2 % (11.8-14.3)
[2021-10-30 03:21] LABS: Hemoglobin 5.3 g/dL (12.2-16.2)
[2021-10-30 03:26] LABS: Albumin 1.1 g/dL (3.4-5.0); Anion Gap 6 (5-15); Blood Urea Nitrogen 54 mg/dL (7-18); Carbon Dioxide 29 mmol/L (21-32); Chloride 102 mmol/L (98-107); Glucose 126 mg/dL (74-106); Potassium 3.5 mmol/L (3.5-5.1); Sodium 137 mmol/L (136-145)
[2021-10-30 03:30] LABS: Alanine Aminotransferase < 6 U/L (13-56); Alkaline Phosphatase 93 U/L (45-117); Aspartate Aminotransferase 12 U/L (15-37); BUN/Creatinine Ratio 34.8; Bilirubin, Total 0.3 mg/dL (0.2-1.0); GFR African American 41 mL/min; GFR Non-African American 34 mL/min; Phosphorus 2.6 mg/dL (2.5-4.90); Total Protein 4.7 g/dL (6.4-8.2)
[2021-10-30] MEDS ORDERED: POTASSIUM CHL 10MEQ/100ML 100 ML IV ONE (08:15)
[2021-10-30] MEDS ORDERED: POTASSIUM CHL 10MEQ/50ML 50 ML IV ONE (08:15)
[2021-10-30] MEDS: LINEZOLID 600MG/300ML 300 ML IV SCH ×2 (09:41→22:00)
[2021-10-30] MEDS: PANTOPRAZOLE 40 MG/10 ML VIAL INJ IV SCH ×2 (09:41→22:00)
[2021-10-30] MEDS: MUPIROCIN 2% OINT 15gm or 22gm EACHNOSTRI SCH ×2 (09:59→21:33)
[2021-10-30] MEDS: SODIUM CHLOR 0.9% PF (SALINE LOCK) 10ML VIAL/SYR IV SCH ×2 (09:59→22:00)
[2021-10-30] MEDS: EPOETIN ALFA-EPBX 10,000 UNIT/1ML VIAL SC SCH (10:00)
[2021-10-30] MEDS: SODIUM FERR GLUC 62.5MG/5ML 125 MG in SODIUM CHL 0.9% 100 ML IV SCH (11:43)
[2021-10-30] MEDS: SUCRALFATE 1 GM/10 ML ORAL SUSP GT SCH ×3 (12:42→22:00)
[2021-10-30] MEDS: fentaNYL Drip 2500mCg/250mlNS 250 ML IV SCH (18:00)
[2021-10-30] MEDS: NOREPINEPHRINE 8 MG/250ML KIT 250 ML IV SCH (18:50)
[2021-10-30] MEDS: MIDAZOLAM DRIP 50 mg/50mL 50 ML IV SCH (18:50)
[2021-10-30] MEDS ORDERED: TPN PER PHARMACY IV NR ×9 (20:00)
[2021-10-31] VITALS (32 sets, daily range): BP systolic 101–147; BP diastolic 42–77
[2021-10-31 08:53] LABS: Basophils # (auto) 0 10 ^3/uL (0-0.2); Basophils % (auto) 0.3 % (0.0-2.0); Eosinophils # (auto) 0.2 10 ^3/uL (0-0.8); Hematocrit 17.4 % (36.0-46.0); Lymphocytes # (auto) 0.8 10 ^3/uL (0.4-5.4); Monocytes # (auto) 0.7 10 ^3/uL (0-1.3); Neutrophils # (auto) 7.8 10 ^3/uL (1.6-8.6); Nucleated Red Blood Cells % 0.2 %; Red Blood Cells 1.95 10^6/uL (4.0-5.20)
[2021-10-31 08:54] LABS: Eosinophils % (auto) 2.1 % (0.0-7.0); Lymphocytes % (auto) 8.2 % (10.0-50.0); Mean Corpuscular Hemoglobin 29.1 pg (28.0-32.0); Mean Corpuscular Hgb Conc. 32.7 g/dL (32.0-36.0); Mean Corpuscular Volume 88.8 fL (80.0-100.0); Monocytes % (auto) 7.5 % (0.0-12.0); Neutrophils % (auto) 81.9 % (37.0-80.0); Red Cell Distribution Width 16.1 % (11.8-14.3); White Blood Cell 9.5 10^3/uL (4.4-10.8)
[2021-10-31 09:25] LABS: Hemoglobin 5.7 g/dL (12.2-16.2)
[2021-10-31 09:40] LABS: Anion Gap 7 (5-15); Carbon Dioxide 28 mmol/L (21-32); Chloride 101 mmol/L (98-107); Potassium 3.9 mmol/L (3.5-5.1); Sodium 136 mmol/L (136-145)
[2021-10-31 09:41] LABS: Alanine Aminotransferase < 6 U/L (13-56); Alkaline Phosphatase 117 U/L (45-117); Aspartate Aminotransferase 15 U/L (15-37); BUN/Creatinine Ratio 33.3; Blood Urea Nitrogen 48 mg/dL (7-18); Calcium 8.6 mg/dL (8.5-10.1); GFR African American 45 mL/min; GFR Non-African American 37 mL/min; Glucose 120 mg/dL (74-106)
[2021-10-31 09:42] LABS: Albumin 1.1 g/dL (3.4-5.0); Bilirubin, Total 0.2 mg/dL (0.2-1.0); Phosphorus 2.3 mg/dL (2.5-4.90); Total Protein 5.6 g/dL (6.4-8.2)
[2021-10-31] MEDS: MUPIROCIN 2% OINT 15gm or 22gm EACHNOSTRI SCH ×2 (10:00→22:08)
[2021-10-31] MEDS: LINEZOLID 600MG/300ML 300 ML IV SCH ×2 (10:00→22:11)
[2021-10-31] MEDS: PANTOPRAZOLE 40 MG/10 ML VIAL INJ IV SCH ×2 (10:00→22:11)
[2021-10-31] MEDS: SODIUM CHLOR 0.9% PF (SALINE LOCK) 10ML VIAL/SYR IV SCH ×2 (10:00→22:11)
[2021-10-31] MEDS: PROPOFOL 100 ML IV SCH ×3 (10:30→23:56)
[2021-10-31] MEDS ORDERED: SODIUM PHOSPHATES 20 MEQ in SODIUM CHL 0.9% 100 ML IV ONE (11:00)
[2021-10-31] MEDS: PIPERACILLIN-TAZOB 2.25GM 50 ML IV SCH ×4 (12:00→23:57)
[2021-10-31] MEDS: SUCRALFATE 1 GM/10 ML ORAL SUSP GT SCH ×3 (12:00→22:11)
[2021-10-31] MEDS: InsuLIN REG 1unit/0.01ml Soln (100units/ml) SC SCH ×3 (12:00→17:46)
[2021-10-31] MEDS: ACCU-CHEK COMFORT CURVE STRIP VI SCH ×4 (12:00→23:56)
[2021-10-31] MEDS: SODIUM FERR GLUC 62.5MG/5ML 125 MG in SODIUM CHL 0.9% 100 ML IV SCH (12:11)
[2021-10-31] MEDS: fentaNYL Drip 2500mCg/250mlNS 250 ML IV SCH (17:46)
[2021-10-31] MEDS: NOREPINEPHRINE 8 MG/250ML KIT 250 ML IV SCH (17:47)
[2021-10-31] MEDS: MIDAZOLAM DRIP 50 mg/50mL 50 ML IV SCH (17:47)
[2021-10-31] MEDS ORDERED: TPN PER PHARMACY IV NR ×9 (20:00)
[2021-11-01] VITALS (28 sets, daily range): BP systolic 116–171; BP diastolic 51–89
[2021-11-01 03:23] LABS: Hematocrit 16.8 % (36.0-46.0)
[2021-11-01 03:40] LABS: Albumin 1.1 g/dL (3.4-5.0); Anion Gap 7 (5-15); BUN/Creatinine Ratio 36.5; Blood Urea Nitrogen 46 mg/dL (7-18); Calcium 8.1 mg/dL (8.5-10.1); Carbon Dioxide 28 mmol/L (21-32); Chloride 101 mmol/L (98-107); GFR African American 52 mL/min; GFR Non-African American 43 mL/min; Glucose 104 mg/dL (74-106); Hemoglobin 5.4 g/dL (12.2-16.2); Potassium 3.9 mmol/L (3.5-5.1); Sodium 136 mmol/L (136-145)
[2021-11-01 03:43] LABS: Alanine Aminotransferase < 6 U/L (13-56); Alkaline Phosphatase 115 U/L (45-117); Aspartate Aminotransferase 10 U/L (15-37); Bilirubin, Total 0.2 mg/dL (0.2-1.0); Phosphorus 3.5 mg/dL (2.5-4.90); Total Protein 4.9 g/dL (6.4-8.2)
[2021-11-01] MEDS: ACCU-CHEK COMFORT CURVE STRIP VI SCH ×3 (05:50→17:54)
[2021-11-01] MEDS: InsuLIN REG 1unit/0.01ml Soln (100units/ml) SC SCH ×4 (05:51→17:54)
[2021-11-01] MEDS: SUCRALFATE 1 GM/10 ML ORAL SUSP GT SCH ×4 (06:04→21:34)
[2021-11-01] MEDS: PIPERACILLIN-TAZOB 2.25GM 50 ML IV SCH ×3 (06:04→17:54)
[2021-11-01] MEDS: SODIUM CHLOR 0.9% PF (SALINE LOCK) 10ML VIAL/SYR IV SCH ×2 (10:00→21:35)
[2021-11-01] MEDS: MUPIROCIN 2% OINT 15gm or 22gm EACHNOSTRI SCH ×2 (10:00→21:34)
[2021-11-01] MEDS: EPOETIN ALFA-EPBX 10,000 UNIT/1ML VIAL SC SCH (10:00)
[2021-11-01] MEDS: PANTOPRAZOLE 40 MG/10 ML VIAL INJ IV SCH ×2 (10:00→21:35)
[2021-11-01] MEDS: LINEZOLID 600MG/300ML 300 ML IV SCH ×2 (10:00→21:35)
[2021-11-01] MEDS ORDERED: ALBUTEROL SULF 2.5 MG/0.5ML(0.5%) NEB SOLN ONE (10:37)
[2021-11-01] MEDS ORDERED: IPRATROPIUM BROM 0.5 MG/2.5ML INH SOL ONE (10:37)
[2021-11-01] MEDS: SODIUM FERR GLUC 62.5MG/5ML 125 MG in SODIUM CHL 0.9% 100 ML IV SCH (12:15)
[2021-11-01] MEDS: hydrALAZINE HCL 20 MG/ML VL IV PRN (16:50)
[2021-11-01] MEDS: MIDAZOLAM DRIP 50 mg/50mL 50 ML IV SCH (17:55)
[2021-11-01] MEDS: NOREPINEPHRINE 8 MG/250ML KIT 250 ML IV SCH (17:55)
[2021-11-01] MEDS: fentaNYL Drip 2500mCg/250mlNS 250 ML IV SCH (17:55)
[2021-11-01] MEDS: ALBUTEROL SULF 2.5 MG/0.5ML(0.5%) NEB SOLN NEB SCH (19:20)
[2021-11-01] MEDS: IPRATROPIUM BROM 0.5 MG/2.5ML INH SOL NEB SCH (19:20)
[2021-11-01] MEDS ORDERED: TPN PER PHARMACY IV NR ×9 (20:00)
[2021-11-02] VITALS (12 sets, daily range): BP systolic 117–161; BP diastolic 56–75
[2021-11-02] MEDS: PIPERACILLIN-TAZOB 2.25GM 50 ML IV SCH ×4 (00:43→20:13)
[2021-11-02 03:28] LABS: Basophils # (auto) 0 10 ^3/uL (0-0.2); Eosinophils # (auto) 0.1 10 ^3/uL (0-0.8); Eosinophils % (auto) 1.2 % (0.0-7.0); Monocytes # (auto) 0.6 10 ^3/uL (0-1.3)
[2021-11-02 03:30] LABS: Basophils % (auto) 0.4 % (0.0-2.0); Hematocrit 17.5 % (36.0-46.0); Lymphocytes # (auto) 0.8 10 ^3/uL (0.4-5.4); Lymphocytes % (auto) 8.9 % (10.0-50.0); Mean Corpuscular Hemoglobin 28.6 pg (28.0-32.0); Mean Corpuscular Hgb Conc. 32.6 g/dL (32.0-36.0); Monocytes % (auto) 6.2 % (0.0-12.0); Neutrophils # (auto) 7.7 10 ^3/uL (1.6-8.6); Neutrophils % (auto) 83.3 % (37.0-80.0); Nucleated Red Blood Cells % 0.1 %; Red Blood Cells 1.99 10^6/uL (4.0-5.20); Red Cell Distribution Width 16.4 % (11.8-14.3); White Blood Cell 9.2 10^3/uL (4.4-10.8)
[2021-11-02 03:41] LABS: Albumin 1.2 g/dL (3.4-5.0); Anion Gap 5 (5-15); BUN/Creatinine Ratio 42.2; Blood Urea Nitrogen 46 mg/dL (7-18); Calcium 8.1 mg/dL (8.5-10.1); Carbon Dioxide 28 mmol/L (21-32); Chloride 103 mmol/L (98-107); GFR African American 62 mL/min; GFR Non-African American 51 mL/min; Glucose 113 mg/dL (74-106); Magnesium 1.9 mg/dL (1.6-2.6); Potassium 4.1 mmol/L (3.5-5.1); Sodium 136 mmol/L (136-145)
[2021-11-02 03:48] LABS: Alanine Aminotransferase < 6 U/L (13-56); Alkaline Phosphatase 102 U/L (45-117); Aspartate Aminotransferase 8 U/L (15-37); Bilirubin, Total 0.2 mg/dL (0.2-1.0); Phosphorus 3.7 mg/dL (2.5-4.90); Total Protein 5.1 g/dL (6.4-8.2)
[2021-11-02] MEDS: hydrALAZINE HCL 20 MG/ML VL IV PRN (04:03)
[2021-11-02 04:07] LABS: Hemoglobin 5.7 g/dL (12.2-16.2)
[2021-11-02] MEDS: SUCRALFATE 1 GM/10 ML ORAL SUSP GT SCH ×4 (05:33→21:35)
[2021-11-02] MEDS: ACCU-CHEK COMFORT CURVE STRIP VI SCH ×4 (06:00→20:15)
[2021-11-02] MEDS: InsuLIN REG 1unit/0.01ml Soln (100units/ml) SC SCH ×4 (06:00→18:00)
[2021-11-02] MEDS: ALBUTEROL SULF 2.5 MG/0.5ML(0.5%) NEB SOLN NEB SCH ×4 (08:24→18:28)
[2021-11-02] MEDS: IPRATROPIUM BROM 0.5 MG/2.5ML INH SOL NEB SCH ×4 (08:24→18:28)
[2021-11-02] MEDS: LINEZOLID 600MG/300ML 300 ML IV SCH ×2 (09:40→21:35)
[2021-11-02] MEDS: MUPIROCIN 2% OINT 15gm or 22gm EACHNOSTRI SCH ×2 (09:40→21:34)
[2021-11-02] MEDS: PANTOPRAZOLE 40 MG/10 ML VIAL INJ IV SCH ×2 (10:00→21:35)
[2021-11-02] MEDS: SODIUM FERR GLUC 62.5MG/5ML 125 MG in SODIUM CHL 0.9% 100 ML IV SCH (12:00)
[2021-11-02] MEDS: NOREPINEPHRINE 8 MG/250ML KIT 250 ML IV SCH (18:00)
[2021-11-02] MEDS: fentaNYL Drip 2500mCg/250mlNS 250 ML IV SCH (18:00)
[2021-11-02] MEDS: MIDAZOLAM DRIP 50 mg/50mL 50 ML IV SCH (18:00)
[2021-11-02] MEDS: SODIUM CHLOR 0.9% PF (SALINE LOCK) 10ML VIAL/SYR IV SCH ×2 (18:53→21:35)
[2021-11-02] MEDS ORDERED: MAGNESIUM SULFATE 1GM/100ML 100 ML IV ONE (19:36)
[2021-11-02] MEDS ORDERED: POTASSIUM CHL 10MEQ/50ML 50 ML IV ONE (19:36)
[2021-11-02] MEDS ORDERED: TPN PER PHARMACY IV NR ×9 (20:00)
[2021-11-03] VITALS (21 sets, daily range): BP systolic 93–138; BP diastolic 44–73
[2021-11-03] MEDS: PIPERACILLIN-TAZOB 2.25GM 50 ML IV SCH ×4 (00:11→18:28)
[2021-11-03] MEDS: ALBUTEROL SULF 2.5 MG/0.5ML(0.5%) NEB SOLN NEB SCH ×4 (00:14→23:06)
[2021-11-03] MEDS: IPRATROPIUM BROM 0.5 MG/2.5ML INH SOL NEB SCH ×4 (00:14→23:06)
[2021-11-03 04:12] LABS: Hematocrit 17.1 % (36.0-46.0)
[2021-11-03 04:16] LABS: Albumin 1.3 g/dL (3.4-5.0); Calcium 8.1 mg/dL (8.5-10.1); Magnesium 1.7 mg/dL (1.6-2.6); Phosphorus 3.8 mg/dL (2.5-4.90); Potassium 4.2 mmol/L (3.5-5.1)
[2021-11-03 04:24] LABS: BUN/Creatinine Ratio 47.3; Bilirubin, Total 0.2 mg/dL (0.2-1.0); Total Protein 5.1 g/dL (6.4-8.2)
[2021-11-03 05:01] LABS: Hemoglobin 5.7 g/dL (12.2-16.2)
[2021-11-03] MEDS: InsuLIN REG 1unit/0.01ml Soln (100units/ml) SC SCH ×4 (06:00→18:00)
[2021-11-03] MEDS: ACCU-CHEK COMFORT CURVE STRIP VI SCH ×4 (06:00→18:00)
[2021-11-03] MEDS: SUCRALFATE 1 GM/10 ML ORAL SUSP GT SCH ×4 (06:19→21:49)
[2021-11-03] MEDS: SODIUM CHLOR 0.9% PF (SALINE LOCK) 10ML VIAL/SYR IV SCH ×2 (14:10→21:49)
[2021-11-03] MEDS: MUPIROCIN 2% OINT 15gm or 22gm EACHNOSTRI SCH ×2 (14:10→21:49)
[2021-11-03] MEDS: LINEZOLID 600MG/300ML 300 ML IV SCH ×2 (14:11→21:49)
[2021-11-03] MEDS: PANTOPRAZOLE 40 MG/10 ML VIAL INJ IV SCH ×2 (14:14→21:49)
[2021-11-03] MEDS ORDERED: MAGNESIUM SULFATE 1GM/100ML 100 ML IV ONE (17:33)
[2021-11-03] MEDS: MIDAZOLAM DRIP 50 mg/50mL 50 ML IV SCH (18:00)
[2021-11-03] MEDS: fentaNYL Drip 2500mCg/250mlNS 250 ML IV SCH (18:00)
[2021-11-03] MEDS: NOREPINEPHRINE 8 MG/250ML KIT 250 ML IV SCH (18:00)
[2021-11-03] MEDS: SODIUM FERR GLUC 62.5MG/5ML 125 MG in SODIUM CHL 0.9% 100 ML IV SCH (18:27)
[2021-11-03] MEDS ORDERED: TPN PER PHARMACY IV NR ×9 (20:00)
[2021-11-04] VITALS: BP 104/50
[2021-11-04] MEDS: PIPERACILLIN-TAZOB 2.25GM 50 ML IV SCH ×4 (02:04→18:00)
[2021-11-04] MEDS: ACCU-CHEK COMFORT CURVE STRIP VI SCH ×2 (02:04→05:15)
[2021-11-04 05:00] VITALS: BP 122/46
[2021-11-04] MEDS: InsuLIN REG 1unit/0.01ml Soln (100units/ml) SC SCH ×2 (05:56)
[2021-11-04] MEDS: SUCRALFATE 1 GM/10 ML ORAL SUSP GT SCH ×4 (05:56→22:00)
[2021-11-04] MEDS: ALBUTEROL SULF 2.5 MG/0.5ML(0.5%) NEB SOLN NEB SCH ×3 (06:07→19:05)
[2021-11-04] MEDS: IPRATROPIUM BROM 0.5 MG/2.5ML INH SOL NEB SCH ×3 (06:07→19:05)
[2021-11-04 09:19] VITALS: BP 119/33
[2021-11-04] MEDS ORDERED: FUROSEMIDE 20 MG/2 ML VIAL IV ONE (09:45)
[2021-11-04] MEDS ORDERED: POTASSIUM EFFERVESENT TAB 25 MEQ GT ONE (09:45)
[2021-11-04] MEDS ORDERED: Jevity 1.2 Cal/Fiber 1 Liter GT SCH (09:45)
[2021-11-04] MEDS: MUPIROCIN 2% OINT 15gm or 22gm EACHNOSTRI SCH ×2 (10:00→22:00)
[2021-11-04] MEDS: SODIUM CHLOR 0.9% PF (SALINE LOCK) 10ML VIAL/SYR IV SCH ×2 (11:10→22:00)
[2021-11-04] MEDS: LINEZOLID 600MG/300ML 300 ML IV SCH ×2 (11:10→22:00)
[2021-11-04] MEDS: PANTOPRAZOLE 40 MG/10 ML VIAL INJ IV SCH ×2 (11:10→22:00)
[2021-11-04] MEDS: EPOETIN ALFA-EPBX 10,000 UNIT/1ML VIAL SC SCH (12:18)
[2021-11-04] MEDS: SODIUM FERR GLUC 62.5MG/5ML 125 MG in SODIUM CHL 0.9% 100 ML IV SCH (12:19)
[2021-11-04 13:28] VITALS: BP 134/55
[2021-11-04 17:00] VITALS: BP 118/48
[2021-11-04 22:00] VITALS: BP 95/53
[2021-11-05] MEDS: ALBUTEROL SULF 2.5 MG/0.5ML(0.5%) NEB SOLN NEB SCH ×5 (00:21→21:28)
[2021-11-05] MEDS: IPRATROPIUM BROM 0.5 MG/2.5ML INH SOL NEB SCH ×5 (00:21→21:27)
[2021-11-05 05:00] VITALS: BP 133/48
[2021-11-05] MEDS: PIPERACILLIN-TAZOB 2.25GM 50 ML IV SCH ×2 (06:00)
[2021-11-05] MEDS: SUCRALFATE 1 GM/10 ML ORAL SUSP GT SCH ×4 (06:00→22:00)
[2021-11-05 07:26] LABS: Basophils # (auto) 0 10 ^3/uL (0-0.2); Basophils % (auto) 0.5 % (0.0-2.0); Eosinophils # (auto) 0.1 10 ^3/uL (0-0.8); Lymphocytes # (auto) 0.7 10 ^3/uL (0.4-5.4); Neutrophils % (auto) 80.7 % (37.0-80.0); Nucleated Red Blood Cells % 0.2 %; Red Blood Cells 1.94 10^6/uL (4.0-5.20)
[2021-11-05 07:31] LABS: Hematocrit 17.2 % (36.0-46.0); Lymphocytes % (auto) 9.9 % (10.0-50.0); Mean Corpuscular Hemoglobin 29.2 pg (28.0-32.0); Mean Corpuscular Hgb Conc. 32.8 g/dL (32.0-36.0); Monocytes # (auto) 0.6 10 ^3/uL (0-1.3); Monocytes % (auto) 7.9 % (0.0-12.0); Neutrophils # (auto) 5.7 10 ^3/uL (1.6-8.6); Red Cell Distribution Width 16.7 % (11.8-14.3)
[2021-11-05 07:44] LABS: Potassium 5.1 mmol/L (3.5-5.1)
[2021-11-05 07:59] LABS: Hemoglobin 5.7 g/dL (12.2-16.2)
[2021-11-05 08:07] LABS: BUN/Creatinine Ratio 45.8; Calcium 8.9 mg/dL (8.5-10.1)
[2021-11-05 09:00] VITALS: BP 122/44
[2021-11-05] MEDS: LINEZOLID 600MG/300ML 300 ML IV SCH ×2 (09:27→22:00)
[2021-11-05] MEDS: PANTOPRAZOLE 40 MG/10 ML VIAL INJ IV SCH ×2 (09:27→22:00)
[2021-11-05] MEDS: SODIUM CHLOR 0.9% PF (SALINE LOCK) 10ML VIAL/SYR IV SCH ×2 (09:28→22:00)
[2021-11-05] MEDS: MUPIROCIN 2% OINT 15gm or 22gm EACHNOSTRI SCH ×2 (09:29→22:00)
[2021-11-05] MEDS: cefTRIAXone 1GM/50ML D5W 50 ML IV SCH (12:00)
[2021-11-05] MEDS: FREE WATER GT SCH ×2 (12:00→18:28)
[2021-11-05 13:00] VITALS: BP 121/51
[2021-11-05] MEDS: ALBUMIN 25% 50 ML IV SCH ×2 (15:56→18:45)
[2021-11-05 17:00] VITALS: BP 155/71
[2021-11-06] MEDS: ALBUMIN 25% 50 ML IV SCH (02:45)
[2021-11-06] MEDS: ALBUTEROL SULF 2.5 MG/0.5ML(0.5%) NEB SOLN NEB SCH ×3 (05:41→18:00)
[2021-11-06] MEDS: IPRATROPIUM BROM 0.5 MG/2.5ML INH SOL NEB SCH ×3 (05:42→18:00)
[2021-11-06] MEDS: FREE WATER GT SCH ×2 (06:00)
[2021-11-06] MEDS: SUCRALFATE 1 GM/10 ML ORAL SUSP GT SCH ×4 (06:00→22:00)
[2021-11-06 06:58] LABS: Basophils # (auto) 0 10 ^3/uL (0-0.2); Basophils % (auto) 0.9 % (0.0-2.0); Eosinophils # (auto) 0.1 10 ^3/uL (0-0.8); Eosinophils % (auto) 1.8 % (0.0-7.0); Hematocrit 16.1 % (36.0-46.0); Lymphocytes # (auto) 0.7 10 ^3/uL (0.4-5.4); Lymphocytes % (auto) 13.9 % (10.0-50.0); Mean Corpuscular Hemoglobin 28.4 pg (28.0-32.0); Mean Corpuscular Hgb Conc. 32.7 g/dL (32.0-36.0); Monocytes # (auto) 0.4 10 ^3/uL (0-1.3); Monocytes % (auto) 8.6 % (0.0-12.0); Neutrophils # (auto) 3.6 10 ^3/uL (1.6-8.6); Neutrophils % (auto) 74.8 % (37.0-80.0); Nucleated Red Blood Cells % 0.3 %; Red Blood Cells 1.85 10^6/uL (4.0-5.20); Red Cell Distribution Width 17.1 % (11.8-14.3); White Blood Cell 4.9 10^3/uL (4.4-10.8)
[2021-11-06 07:03] LABS: Hemoglobin 5.3 g/dL (12.2-16.2)
[2021-11-06 07:21] LABS: Albumin 1.9 g/dL (3.4-5.0); Calcium 8.5 mg/dL (8.5-10.1); Potassium 4.7 mmol/L (3.5-5.1)
[2021-11-06 07:24] LABS: BUN/Creatinine Ratio 41.3; Bilirubin, Total 0.2 mg/dL (0.2-1.0); Total Protein 5.9 g/dL (6.4-8.2)
[2021-11-06 09:00] VITALS: BP 153/66
[2021-11-06] MEDS: cefTRIAXone 1GM/50ML D5W 50 ML IV SCH (09:00)
[2021-11-06] MEDS: MUPIROCIN 2% OINT 15gm or 22gm EACHNOSTRI SCH (10:00)
[2021-11-06] MEDS: PANTOPRAZOLE 40 MG/10 ML VIAL INJ IV SCH ×2 (10:00→22:00)
[2021-11-06] MEDS: LINEZOLID 600MG/300ML 300 ML IV SCH ×2 (10:00→22:00)
[2021-11-06] MEDS: SODIUM CHLOR 0.9% PF (SALINE LOCK) 10ML VIAL/SYR IV SCH ×2 (10:00→22:00)
[2021-11-06] MEDS ORDERED: SODIUM FERR GLUC 62.5MG/5ML 125 MG in SODIUM CHL 0.9% 100 ML IV ONE (10:45)
[2021-11-06] MEDS ORDERED: LEVOTHYROXINE SODIUM 50 MCG TAB PO ONE (10:45)
[2021-11-06 13:00] VITALS: BP 150/67
[2021-11-06 17:00] VITALS: BP_SYST 160; BP_SYST 169; BP_DIAS 61; BP_DIAS 64
[2021-11-06 22:00] VITALS: BP 157/67
[2021-11-07 05:00] VITALS: BP 142/53
[2021-11-07] MEDS: SUCRALFATE 1 GM/10 ML ORAL SUSP GT SCH ×4 (06:00→22:00)
[2021-11-07] MEDS: LEVOTHYROXINE SODIUM 50 MCG TAB PO SCH (07:00)
[2021-11-07] MEDS: IPRATROPIUM BROM 0.5 MG/2.5ML INH SOL NEB SCH ×4 (07:01→18:00)
[2021-11-07] MEDS: ALBUTEROL SULF 2.5 MG/0.5ML(0.5%) NEB SOLN NEB SCH ×4 (07:01→18:00)
[2021-11-07 08:30] VITALS: BP 144/60
[2021-11-07] MEDS: cefTRIAXone 1GM/50ML D5W 50 ML IV SCH (09:31)
[2021-11-07] MEDS: PANTOPRAZOLE 40 MG/10 ML VIAL INJ IV SCH ×2 (09:31→22:22)
[2021-11-07] MEDS: LINEZOLID 600MG/300ML 300 ML IV SCH ×2 (09:36→22:22)
[2021-11-07] MEDS: SODIUM CHLOR 0.9% PF (SALINE LOCK) 10ML VIAL/SYR IV SCH ×2 (09:46→22:22)
[2021-11-07] MEDS: SODIUM FERR GLUC 62.5MG/5ML 125 MG in SODIUM CHL 0.9% 100 ML IV SCH (12:55)
[2021-11-07 13:00] VITALS: BP 132/67
[2021-11-07 17:00] VITALS: BP 147/58
[2021-11-08 05:25] LABS: Basophils # (auto) 0.1 10 ^3/uL (0-0.2); Basophils % (auto) 1.4 % (0.0-2.0); Eosinophils # (auto) 0.1 10 ^3/uL (0-0.8); Monocytes # (auto) 0.4 10 ^3/uL (0-1.3); Neutrophils # (auto) 2.8 10 ^3/uL (1.6-8.6); White Blood Cell 4.1 10^3/uL (4.4-10.8)
[2021-11-08 05:30] LABS: Eosinophils % (auto) 3.2 % (0.0-7.0); Hematocrit 16.6 % (36.0-46.0); Lymphocytes # (auto) 0.8 10 ^3/uL (0.4-5.4); Lymphocytes % (auto) 18.7 % (10.0-50.0); Mean Corpuscular Hemoglobin 28.8 pg (28.0-32.0); Mean Corpuscular Volume 87.5 fL (80.0-100.0); Monocytes % (auto) 9.9 % (0.0-12.0); Neutrophils % (auto) 66.8 % (37.0-80.0); Nucleated Red Blood Cells % 0.2 %; Red Cell Distribution Width 17.3 % (11.8-14.3)
[2021-11-08 05:32] LABS: BUN/Creatinine Ratio 36.7; Calcium 9.2 mg/dL (8.5-10.1); Potassium 4.4 mmol/L (3.5-5.1)
[2021-11-08] MEDS: ALBUTEROL SULF 2.5 MG/0.5ML(0.5%) NEB SOLN NEB SCH ×4 (06:11→18:02)
[2021-11-08] MEDS: IPRATROPIUM BROM 0.5 MG/2.5ML INH SOL NEB SCH ×4 (06:12→18:02)
[2021-11-08] MEDS: SUCRALFATE 1 GM/10 ML ORAL SUSP GT SCH ×4 (06:20→23:00)
[2021-11-08] MEDS: LEVOTHYROXINE SODIUM 50 MCG TAB PO SCH (06:20)
[2021-11-08 06:29] LABS: Hemoglobin 5.5 g/dL (12.2-16.2)
[2021-11-08 09:00] VITALS: BP 173/69
[2021-11-08] MEDS: LINEZOLID 600MG/300ML 300 ML IV SCH (09:20)
[2021-11-08] MEDS: cefTRIAXone 1GM/50ML D5W 50 ML IV SCH (09:20)
[2021-11-08] MEDS: PANTOPRAZOLE 40 MG/10 ML VIAL INJ IV SCH (09:20)
[2021-11-08] MEDS ORDERED: CATHFLO ACTIVASE (ALTEPLASE) 2 MG VIAL IV ONE (09:30)
[2021-11-08] MEDS: SODIUM CHLOR 0.9% PF (SALINE LOCK) 10ML VIAL/SYR IV SCH ×2 (10:00→23:00)
[2021-11-08] MEDS: PANTOPRAZOLE 40 MG TAB PO SCH ×2 (10:00→23:00)
[2021-11-08] MEDS: LINEZOLID 600MG TABLET PO SCH ×2 (10:00→23:00)
[2021-11-08 13:00] VITALS: BP 177/98
[2021-11-08] MEDS: SODIUM FERR GLUC 62.5MG/5ML 125 MG in SODIUM CHL 0.9% 100 ML IV SCH (13:16)
[2021-11-08] MEDS: hydrALAZINE HCL 20 MG/ML VL IV PRN (13:16)
[2021-11-08] MEDS: NYSTATIN TOPICAL POWDER 15GM TOP SCH ×2 (14:11→23:00)
[2021-11-08 17:00] VITALS: BP 131/78
[2021-11-08 22:00] VITALS: BP 146/51
[2021-11-09] MEDS: IPRATROPIUM BROM 0.5 MG/2.5ML INH SOL NEB SCH ×4 (00:07→18:09)
[2021-11-09] MEDS: ALBUTEROL SULF 2.5 MG/0.5ML(0.5%) NEB SOLN NEB SCH ×4 (00:07→18:06)
[2021-11-09 05:00] VITALS: BP 146/52
[2021-11-09] MEDS: SUCRALFATE 1 GM/10 ML ORAL SUSP GT SCH ×4 (06:15→21:35)
[2021-11-09] MEDS: LEVOTHYROXINE SODIUM 50 MCG TAB PO SCH (06:16)
[2021-11-09 09:00] VITALS: BP 147/71
[2021-11-09 09:27] VITALS: BP 146/58
[2021-11-09] MEDS: SODIUM CHLOR 0.9% PF (SALINE LOCK) 10ML VIAL/SYR IV SCH ×2 (10:04→21:37)
[2021-11-09] MEDS: cefTRIAXone 1GM/50ML D5W 50 ML IV SCH (10:04)
[2021-11-09] MEDS: NYSTATIN TOPICAL POWDER 15GM TOP SCH ×2 (10:05→21:35)
[2021-11-09] MEDS: PANTOPRAZOLE 40 MG TAB PO SCH ×2 (10:05→21:35)
[2021-11-09] MEDS: LINEZOLID 600MG TABLET PO SCH ×2 (10:05→21:35)
[2021-11-09] MEDS: SODIUM FERR GLUC 62.5MG/5ML 125 MG in SODIUM CHL 0.9% 100 ML IV SCH (12:43)
[2021-11-09 13:00] VITALS: BP 119/66
[2021-11-09 16:41] VITALS: BP 153/79
[2021-11-09 22:00] VITALS: BP 129/57
[2021-11-10] MEDS: ALBUTEROL SULF 2.5 MG/0.5ML(0.5%) NEB SOLN NEB SCH ×4 (00:24→19:15)
[2021-11-10] MEDS: IPRATROPIUM BROM 0.5 MG/2.5ML INH SOL NEB SCH ×4 (00:25→19:16)
[2021-11-10 05:00] VITALS: BP 139/54
[2021-11-10] MEDS: SUCRALFATE 1 GM/10 ML ORAL SUSP GT SCH ×4 (05:59→22:00)
[2021-11-10] MEDS: LEVOTHYROXINE SODIUM 50 MCG TAB PO SCH (05:59)
[2021-11-10] MEDS: cefTRIAXone 1GM/50ML D5W 50 ML IV SCH (08:20)
[2021-11-10] MEDS: SODIUM CHLOR 0.9% PF (SALINE LOCK) 10ML VIAL/SYR IV SCH ×2 (08:20→22:00)
[2021-11-10] MEDS: LINEZOLID 600MG TABLET PO SCH ×2 (08:20→22:00)
[2021-11-10] MEDS: PANTOPRAZOLE 40 MG TAB PO SCH ×2 (08:20→22:00)
[2021-11-10] MEDS: NYSTATIN TOPICAL POWDER 15GM TOP SCH ×2 (08:21→22:00)
[2021-11-10 09:00] VITALS: BP 120/43
[2021-11-10 13:00] VITALS: BP 154/64
[2021-11-10] MEDS: SODIUM FERR GLUC 62.5MG/5ML 125 MG in SODIUM CHL 0.9% 100 ML IV SCH (13:00)
[2021-11-10 17:00] VITALS: BP 140/53
[2021-11-10 20:00] VITALS: BP 131/77
[2021-11-10 22:00] VITALS: BP 109/64
[2021-11-10] MEDS ORDERED: TEMAZEPAM 15 MG CAP PO ONE (23:45)
[2021-11-11] MEDS: IPRATROPIUM BROM 0.5 MG/2.5ML INH SOL NEB SCH ×3 (01:27→13:28)
[2021-11-11 05:00] VITALS: BP 103/46
[2021-11-11] MEDS: SUCRALFATE 1 GM/10 ML ORAL SUSP GT SCH ×2 (06:00→12:00)
[2021-11-11] MEDS: LEVOTHYROXINE SODIUM 50 MCG TAB PO SCH (07:00)
[2021-11-11 08:00] VITALS: BP 139/57
[2021-11-11] MEDS: cefTRIAXone 1GM/50ML D5W 50 ML IV SCH (09:00)
[2021-11-11] MEDS: ALBUTEROL SULF 2.5 MG/0.5ML(0.5%) NEB SOLN NEB SCH ×3 (09:06→13:28)
[2021-11-11] MEDS: NYSTATIN TOPICAL POWDER 15GM TOP SCH (10:00)
[2021-11-11] MEDS: LINEZOLID 600MG TABLET PO SCH (10:00)
[2021-11-11] MEDS: PANTOPRAZOLE 40 MG TAB PO SCH (10:00)
[2021-11-11] MEDS: SODIUM CHLOR 0.9% PF (SALINE LOCK) 10ML VIAL/SYR IV SCH (10:00)
[2021-11-11 12:00] VITALS: BP 130/52
[2021-11-11] MEDS: SODIUM FERR GLUC 62.5MG/5ML 125 MG in SODIUM CHL 0.9% 100 ML IV SCH (12:00)
[2021-11-11 15:19] VITALS: BP 130/52
[2021-11-11 16:00] VITALS: BP 150/54
== END 2021-11-11 17:30 | DRG 853 ==
LOC: ER 07:37 → SUATTDRO 11:15 → TELE 11:19 → TELE-CENTR 10-20 16:23 → CATH ICU 10-24 18:06 → TELE-CENTR 11-04 01:42 → CENTRAL 11-10 15:19
PROVIDERS: ADMIT Family Medicine; ATTEND Internal Medicine
PROC: 0D9670Z Drainage of Stomach with Drainage Device, Via Natural or Artificial Opening (ICD-10-PCS; 2021-10-19)
PROC: 06H033Z Insertion of Infusion Device into Inferior Vena Cava, Percutaneous Approach (ICD-10-PCS; 2021-10-19)
PROC: B549ZZA Ultrasonography of Inferior Vena Cava, Guidance (ICD-10-PCS; 2021-10-19)
PROC: 0D1M0Z4 Bypass Descending Colon to Cutaneous, Open Approach (ICD-10-PCS; 2021-10-24)
PROC: 0W9G0ZZ Drainage of Peritoneal Cavity, Open Approach (ICD-10-PCS; 2021-10-24)
PROC: 5A1955Z Respiratory Ventilation, Greater than 96 Consecutive Hours (ICD-10-PCS; 2021-10-24)
PROC: 0BH17EZ Insertion of Endotracheal Airway into Trachea, Via Natural or Artificial Opening (ICD-10-PCS; 2021-10-24)
PROC: 0DTN0ZZ Resection of Sigmoid Colon, Open Approach (ICD-10-PCS; principal; 2021-10-24 15:08)
PROC: 02HV33Z Insertion of Infusion Device into Superior Vena Cava, Percutaneous Approach (ICD-10-PCS; 2021-10-26)
PROC: B548ZZA Ultrasonography of Superior Vena Cava, Guidance (ICD-10-PCS; 2021-10-26)
PROC: 0DJ08ZZ Inspection of Upper Intestinal Tract, Via Natural or Artificial Opening Endoscopic (ICD-10-PCS; 2021-10-31)
DX: A41.9 Sepsis, unspecified organism (principal); N17.0 Acute kidney failure with tubular necrosis; I21.A1 Myocardial infarction type 2; R65.21 Severe sepsis with septic shock; K65.1 Peritoneal abscess; N18.6 End stage renal disease; K29.71 Gastritis, unspecified, with bleeding; J96.01 Acute respiratory failure with hypoxia; K57.20 Diverticulitis of large intestine with perforation and abscess without bleeding; D68.9 Coagulation defect, unspecified; I13.2 Hypertensive heart and chronic kidney disease with heart failure and with stage 5 chronic kidney disease, or end stage renal disease; E44.0 Moderate protein-calorie malnutrition; Z66 Do not resuscitate; R91.1 Solitary pulmonary nodule; N28.89 Other specified disorders of kidney and ureter; D50.9 Iron deficiency anemia, unspecified; E03.9 Hypothyroidism, unspecified; F03.90 Unspecified dementia, unspecified severity, without behavioral disturbance, psychotic disturbance, mood disturbance, and anxiety; I50.9 Heart failure, unspecified; I48.0 Paroxysmal atrial fibrillation; K44.9 Diaphragmatic hernia without obstruction or gangrene; Z20.822 Contact with and (suspected) exposure to COVID-19; Z53.1 Procedure and treatment not carried out because of patient's decision for reasons of belief and group pressure; Z82.49 Family history of ischemic heart disease and other diseases of the circulatory system; Z83.3 Family history of diabetes mellitus; Z68.26 Body mass index [BMI] 26.0-26.9, adult
CPT/HCPCS: 36415; 36569; 36600; 43235; 51702; 71045; 72195; 74176; 74181; 80048; 80053; 80202; 81001; 82040; 82270; 82378; 82805; 82962; 83036; 83540; 83550; 83690; 83735; 83880; 84100; 84443; 84478; 84484; 85014; 85018; 85025; 85610; 85730; 86850; 86900; 86901; 87040; 87070; 87075; 87077; 87081; 87186; 87205; 87426; 93005; 94002; 94003; 94640; 96361; 96365; 96368; 96375; 97110; 97116; 97163; 97530; C9113; G0378; J0696; J1100; J1815; J2001; J2250; J2405; J2543; J2704; J3490; J7060; J7131

== ENCOUNTER 2021-11-20 19:48 | Inpatient (IN) | payer MEDICARE, BC ==
[~2021-11-20] VITALS: Ht 137.2 cm; Wt 66.2 kg
[2021-11-20 23:32] LABS: Albumin 2.4 g/dL (3.4-5.0); Calcium 9.3 mg/dL (8.5-10.1); Potassium 3.9 mmol/L (3.5-5.1)
[2021-11-20 23:37] LABS: Bilirubin, Total 0.2 mg/dL (0.2-1.0); Total Protein 6.3 g/dL (6.4-8.2)
[2021-11-20 23:39] LABS: Basophils # (auto) 0 10 ^3/uL (0-0.2); Eosinophils # (auto) 0.1 10 ^3/uL (0-0.8); Eosinophils % (auto) 2.7 % (0.0-7.0); Hematocrit 13.9 % (36.0-46.0); Lymphocytes # (auto) 1.5 10 ^3/uL (0.4-5.4); Lymphocytes % (auto) 40.1 % (10.0-50.0); Mean Corpuscular Hemoglobin 29.5 pg (28.0-32.0); Mean Corpuscular Hgb Conc. 34.4 g/dL (32.0-36.0); Mean Corpuscular Volume 85.8 fL (80.0-100.0); Monocytes # (auto) 0.2 10 ^3/uL (0-1.3); Monocytes % (auto) 5.8 % (0.0-12.0); Neutrophils # (auto) 1.8 10 ^3/uL (1.6-8.6); Neutrophils % (auto) 50.4 % (37.0-80.0); Nucleated Red Blood Cells % 0.1 %; Red Blood Cells 1.62 10^6/uL (4.0-5.20); Red Cell Distribution Width 17.6 % (11.8-14.3); White Blood Cell 3.7 10^3/uL (4.4-10.8)
[2021-11-20 23:41] LABS: Hemoglobin 4.8 g/dL (12.2-16.2)
[2021-11-21] MEDS ORDERED: NITROGLYCERIN 0.4 MG SL TAB SL PRN (04:45)
[2021-11-21] MEDS ORDERED: SODIUM CHLORIDE 0.9% 1,000 ML IV SCH (04:45)
[2021-11-21] MEDS ORDERED: MORPHINE SULFATE INJECTION 2 MG/ML SYRG IV PRN (04:45)
[2021-11-21] MEDS: LEVOTHYROXINE SODIUM 50 MCG TAB PO SCH (07:28)
[2021-11-21] MEDS ORDERED: NIFEdipine ER 30 MG TAB PO SCH (10:00)
[2021-11-21] MEDS: METOPROLOL TARTRATE 25 MG TAB PO SCH ×2 (10:09→22:23)
[2021-11-21] MEDS ORDERED: SODIUM FERR GLUC 62.5MG/5ML 125 MG in SODIUM CHL 0.9% 100 ML IV ONE (13:15)
[2021-11-21 15:15] VITALS: BP 152/76
[2021-11-21] MEDS ORDERED: NIFEdipine ER 30 MG TAB PO ONE (16:15)
[2021-11-21 16:44] LABS: Folate (Folic Acid) 9.27 ng/mL (5.38-24)
[2021-11-21 17:00] VITALS: BP 154/73
[2021-11-21] MEDS ORDERED: SUCR1SUS10 PO (17:17)
[2021-11-21] MEDS ORDERED: MULT-1018 PO (17:17)
[2021-11-21] MEDS ORDERED: FLEETMIN PR (17:17)
[2021-11-21] MEDS ORDERED: MOMLQ PO (17:17)
[2021-11-21] MEDS ORDERED: MEGE20TA5 PO (17:17)
[2021-11-21] MEDS ORDERED: FURO40TA4 PO (17:17)
[2021-11-21] MEDS ORDERED: FER325T PO (17:17)
[2021-11-21] MEDS ORDERED: LEV100T PO (17:17)
[2021-11-21] MEDS ORDERED: MEGE1SUS5 PO (17:17)
[2021-11-21] MEDS ORDERED: NUTRCAP PO (17:17)
[2021-11-21] MEDS ORDERED: BISA10SU45 RE (17:17)
[2021-11-21] MEDS ORDERED: ACET-1304 PO (17:17)
[2021-11-21] MEDS ORDERED: GEN03OS OP (17:17)
[2021-11-21] MEDS ORDERED: IPRA0.00 IN (17:17)
[2021-11-21] MEDS ORDERED: PANT40TA2 PO (17:17)
[2021-11-21] MEDS ORDERED: GENTAMICIN SULF 0.3% OPTH(EYE) OINT 3.5GM EACHEYE SCH (18:00)
[2021-11-21] MEDS ORDERED: TOBRAMYCIN SULF 0.3% OPTH(EYE) SOLN 5ML EACHEYE SCH (18:00)
[2021-11-21] MEDS: TOBRAMYCIN SULF 0.3% OPTH(EYE) OINT 3.5GM OP SCH ×2 (18:09→22:22)
[2021-11-21 20:46] LABS: Urine Bacteria FEW /hpf (None Seen); Urine Blood Negative /uL (Negative); Urine Hyaline Cast FEW /lpf (0 - 2); Urine Specific Gravity 1.015 (1.001-1.035); Urine WBC 6 /hpf (0 - 5)
[2021-11-21 22:00] VITALS: BP 124/46
[2021-11-22] MEDS: TOBRAMYCIN SULF 0.3% OPTH(EYE) OINT 3.5GM OP SCH ×6 (02:00→21:16)
[2021-11-22] MEDS: LEVOTHYROXINE SODIUM 50 MCG TAB PO SCH (07:08)
[2021-11-22] MEDS: NIFEdipine ER 30 MG TAB PO SCH (09:13)
[2021-11-22] MEDS: METOPROLOL TARTRATE 25 MG TAB PO SCH ×2 (09:13→21:16)
[2021-11-22 09:17] LABS: Hematocrit 14.3 % (36.0-46.0)
[2021-11-22 09:34] LABS: Hemoglobin 4.8 g/dL (12.2-16.2)
[2021-11-22 10:07] VITALS: BP 130/56
[2021-11-22] MEDS: SODIUM FERR GLUC 62.5MG/5ML 125 MG in SODIUM CHL 0.9% 100 ML IV SCH (12:05)
[2021-11-22 13:00] VITALS: BP 118/52
[2021-11-22 17:41] VITALS: BP 122/55
[2021-11-22] MEDS ORDERED: EPOETIN ALFA-EPBX 4,000 UNIT/ML VIAL SC ONE (21:00)
[2021-11-22 22:00] VITALS: BP 125/50
[2021-11-23] MEDS: TOBRAMYCIN SULF 0.3% OPTH(EYE) OINT 3.5GM OP SCH ×6 (02:00→21:10)
[2021-11-23 05:00] VITALS: BP 126/66
[2021-11-23] MEDS: LEVOTHYROXINE SODIUM 50 MCG TAB PO SCH (07:37)
[2021-11-23 09:00] VITALS: BP_SYST 132; BP_SYST 155; BP_DIAS 60; BP_DIAS 74
[2021-11-23] MEDS: METOPROLOL TARTRATE 25 MG TAB PO SCH ×2 (09:43→21:10)
[2021-11-23] MEDS: NIFEdipine ER 30 MG TAB PO SCH (09:43)
[2021-11-23] MEDS: SODIUM FERR GLUC 62.5MG/5ML 125 MG in SODIUM CHL 0.9% 100 ML IV SCH (11:37)
[2021-11-23 13:00] VITALS: BP 155/74
[2021-11-23 13:35] VITALS: BP 128/45
[2021-11-23 17:00] VITALS: BP 119/50
[2021-11-23 22:00] VITALS: BP 107/39
[2021-11-24] MEDS: TOBRAMYCIN SULF 0.3% OPTH(EYE) OINT 3.5GM OP SCH ×6 (02:34→21:21)
[2021-11-24 05:00] VITALS: BP 115/47
[2021-11-24] MEDS ORDERED: ACETAMINOPHEN 325 MG TAB PO PRN (06:15)
[2021-11-24] MEDS: LEVOTHYROXINE SODIUM 50 MCG TAB PO SCH (06:36)
[2021-11-24 09:00] VITALS: BP 137/59
[2021-11-24] MEDS: METOPROLOL TARTRATE 25 MG TAB PO SCH ×2 (09:45→21:21)
[2021-11-24] MEDS: NIFEdipine ER 30 MG TAB PO SCH (09:45)
[2021-11-24] MEDS: SODIUM FERR GLUC 62.5MG/5ML 125 MG in SODIUM CHL 0.9% 100 ML IV SCH (12:49)
[2021-11-24 13:00] VITALS: BP 136/55
[2021-11-24] MEDS: HYDROcodone-ACET 5/325MG TAB PO PRN ×2 (13:32→21:21)
[2021-11-24 17:00] VITALS: BP 133/49
[2021-11-24 22:00] VITALS: BP 134/60
[2021-11-25] MEDS: TOBRAMYCIN SULF 0.3% OPTH(EYE) OINT 3.5GM OP SCH ×6 (02:00→21:43)
[2021-11-25 05:00] VITALS: BP 111/50
[2021-11-25 05:44] LABS: White Blood Cell 12.4 10^3/uL (4.4-10.8)
[2021-11-25 05:49] LABS: Mean Corpuscular Hemoglobin 28.9 pg (28.0-32.0); Mean Corpuscular Hgb Conc. 34.4 g/dL (32.0-36.0); Mean Corpuscular Volume 84.1 fL (80.0-100.0); Red Blood Cells 1.43 10^6/uL (4.0-5.20); Red Cell Distribution Width 17.9 % (11.8-14.3)
[2021-11-25] MEDS: LEVOTHYROXINE SODIUM 50 MCG TAB PO SCH (06:02)
[2021-11-25 06:09] LABS: BUN/Creatinine Ratio 16.2; Calcium 8.5 mg/dL (8.5-10.1); Potassium 3.9 mmol/L (3.5-5.1)
[2021-11-25 06:40] LABS: Hemoglobin 4.1 g/dL (12.2-16.2)
[2021-11-25 06:42] LABS: Basophils % (manual) 0 (0.0-2.0); Blast Cells 0; Metamyelocytes % 0; Promyelocytes % 0; Reactive Lymphocytes 0
[2021-11-25 07:27] LABS: Band Neutrophils % (manual) 2; Eosinophils % (manual) 1 (0-7); Lymphocytes % (manual) 28 (10.0-50.0); Monocytes % (manual) 9 (0-12); Myelocytes % 1
[2021-11-25 08:32] VITALS: BP 132/51
[2021-11-25] MEDS: NIFEdipine ER 30 MG TAB PO SCH (11:13)
[2021-11-25] MEDS: SODIUM FERR GLUC 62.5MG/5ML 125 MG in SODIUM CHL 0.9% 100 ML IV SCH (12:52)
[2021-11-25 12:53] VITALS: BP 118/56
[2021-11-25] MEDS: METOPROLOL TARTRATE 25 MG TAB PO SCH ×2 (12:56→21:43)
[2021-11-25 16:34] VITALS: BP 132/42
[2021-11-25 21:37] VITALS: BP 138/64
[2021-11-26] MEDS: TOBRAMYCIN SULF 0.3% OPTH(EYE) OINT 3.5GM OP SCH ×4 (02:57→15:47)
[2021-11-26 04:37] VITALS: BP 148/77
[2021-11-26] MEDS: LEVOTHYROXINE SODIUM 50 MCG TAB PO SCH (06:07)
[2021-11-26 09:00] VITALS: BP 141/54
[2021-11-26] MEDS: METOPROLOL TARTRATE 25 MG TAB PO SCH (10:49)
[2021-11-26] MEDS: NIFEdipine ER 30 MG TAB PO SCH (10:50)
[2021-11-26] MEDS: SODIUM FERR GLUC 62.5MG/5ML 125 MG in SODIUM CHL 0.9% 100 ML IV SCH (12:30)
[2021-11-26 13:00] VITALS: BP 122/58
[2021-11-26 13:03] LABS: Red Cell Distribution Width 18.4 % (11.8-14.3)
[2021-11-26 13:04] LABS: Hematocrit 14.3 % (36.0-46.0); Mean Corpuscular Hemoglobin 28.3 pg (28.0-32.0); Mean Corpuscular Hgb Conc. 32.6 g/dL (32.0-36.0); Mean Corpuscular Volume 86.8 fL (80.0-100.0); Red Blood Cells 1.64 10^6/uL (4.0-5.20)
[2021-11-26 13:34] LABS: Hemoglobin 4.7 g/dL (12.2-16.2)
[2021-11-26 13:36] LABS: Basophils % (manual) 0 (0.0-2.0); Blast Cells 0; Metamyelocytes % 0; Promyelocytes % 0; Reactive Lymphocytes 0
[2021-11-26 14:31] LABS: Band Neutrophils % (manual) 5; Eosinophils % (manual) 2 (0-7); Lymphocytes % (manual) 16 (10.0-50.0); Monocytes % (manual) 4 (0-12); Myelocytes % 2
[2021-11-26 16:50] VITALS: BP 137/77
[2021-11-26 17:33] VITALS: BP 137/77
== END 2021-11-26 17:58 | disposition home health service (06) | DRG 393 ==
LOC: EDBD 19:48 → ER 19:49 → TELE 11-21 04:44 → TELE-EAST 11-21 14:30
PROVIDERS: ADMIT Internal Medicine; ATTEND Internal Medicine
DX: K94.09 Other complications of colostomy (principal); I21.A1 Myocardial infarction type 2; N17.9 Acute kidney failure, unspecified; D50.9 Iron deficiency anemia, unspecified; E88.09 Other disorders of plasma-protein metabolism, not elsewhere classified; R51.9 Headache, unspecified; E66.9 Obesity, unspecified; F03.90 Unspecified dementia, unspecified severity, without behavioral disturbance, psychotic disturbance, mood disturbance, and anxiety; E03.9 Hypothyroidism, unspecified; I48.0 Paroxysmal atrial fibrillation; Z79.899 Other long term (current) drug therapy; Z82.49 Family history of ischemic heart disease and other diseases of the circulatory system; Z83.3 Family history of diabetes mellitus; Z99.81 Dependence on supplemental oxygen; Z20.822 Contact with and (suspected) exposure to COVID-19; Y83.8 Other surgical procedures as the cause of abnormal reaction of the patient, or of later complication, without mention of misadventure at the time of the procedure; I10 Essential (primary) hypertension; Z68.24 Body mass index [BMI] 24.0-24.9, adult
CPT/HCPCS: 36415; 70450; 71045; 74176; 80048; 80053; 81001; 82270; 82607; 82746; 83615; 83880; 84484; 85007; 85014; 85018; 85025; 85027; 85045; 86850; 86900; 86901; 86920; 87426; 93005; 96360; 97116; 97163; 97530; G0378

== ENCOUNTER 2021-11-29 09:39 | Inpatient (IN) | payer MEDICARE, BC ==
[~2021-11-29] VITALS: Ht 162.6 cm; Wt 64.1 kg
[~2021-11-29 09:39] MED LIST changes: +ACET-1304 PO; -ALEN70TA74 PO; -APIX5TAB PO; -ASPI-543 PO; +BISA10SU45 RE; -FEBU40TA PO; +FER325T PO; +FURO40TA4 PO; +GEN03OS OP; +IPRA0.00 IN; -MEMA1CAP2 PO; +MOMLQ PO; +MULT-1018 PO; +NUTRCAP PO
[2021-11-29] MEDS ORDERED: ONDANSETRON HCL 4 MG/2 ML VIAL IV ONE (10:00)
[2021-11-29] MEDS ORDERED: ALUM & MAG HYDROX-SIMETH LIQ(MAALOX) 30 ML PO ONE (10:00)
[2021-11-29] MEDS ORDERED: FAMOTIDINE (10MG/ML) 2ML VL IV ONE (10:00)
[2021-11-29 10:41] LABS: Basophils # (auto) 0 10 ^3/uL (0-0.2); Eosinophils # (auto) 0 10 ^3/uL (0-0.8); Lymphocytes # (auto) 0.6 10 ^3/uL (0.4-5.4)
[2021-11-29 10:43] LABS: Basophils % (auto) 0.3 % (0.0-2.0); Eosinophils % (auto) 0.2 % (0.0-7.0); Hematocrit 16.9 % (36.0-46.0); Lymphocytes % (auto) 10.8 % (10.0-50.0); Mean Corpuscular Hemoglobin 28.1 pg (28.0-32.0); Mean Corpuscular Hgb Conc. 31.8 g/dL (32.0-36.0); Mean Corpuscular Volume 88.3 fL (80.0-100.0); Monocytes # (auto) 0.3 10 ^3/uL (0-1.3); Monocytes % (auto) 6.3 % (0.0-12.0); Neutrophils # (auto) 4.4 10 ^3/uL (1.6-8.6); Neutrophils % (auto) 82.4 % (37.0-80.0); Nucleated Red Blood Cells % 0.3 %; Red Blood Cells 1.91 10^6/uL (4.0-5.20); White Blood Cell 5.4 10^3/uL (4.4-10.8)
[2021-11-29 10:52] LABS: Hemoglobin 5.4 g/dL (12.2-16.2); Red Cell Distribution Width 20.7 % (11.8-14.3)
[2021-11-29 10:57] LABS: Magnesium 1.4 mg/dL (1.6-2.6)
[2021-11-29 11:04] LABS: BUN/Creatinine Ratio 12.1; Bilirubin, Total 0.4 mg/dL (0.2-1.0); Phosphorus 2.4 mg/dL (2.5-4.90); Total Protein 7.1 g/dL (6.4-8.2)
[2021-11-29] MEDS ORDERED: ASPirin 81 mg TAB PO ONE (12:15)
[2021-11-29] MEDS ORDERED: FERROUS SULFATE 325mg EC TAB PO ONE (12:45)
[2021-11-29] MEDS ORDERED: ASCORBIC ACID 500 MG TAB PO ONE (13:00)
[2021-11-29] MEDS ORDERED: METOCLOPRAMIDE HCL 5MG/ml INJ 2ml VIAL IV ONE (13:45)
[2021-11-29] MEDS ORDERED: LACTATED RINGER'S 1,000 ML IV ONE (13:45)
[2021-11-29] MEDS ORDERED: MORPHINE SULFATE INJECTION 2 MG/ML SYRG IV PRN (14:45)
[2021-11-29] MEDS ORDERED: HYDROcodone-ACET 5/325MG TAB PO PRN (14:45)
[2021-11-29] MEDS ORDERED: DOCUSATE SOD 100 MG CAP PO PRN (14:45)
[2021-11-29] MEDS ORDERED: METOCLOPRAMIDE HCL 5MG/ml INJ 2ml VIAL IV PRN (14:45)
[2021-11-29] MEDS ORDERED: SODIUM FERR GLUC 62.5MG/5ML 125 MG in SODIUM CHL 0.9% 100 ML IV ONE (14:45)
[2021-11-29] MEDS ORDERED: NITROGLYCERIN 0.4 MG SL TAB SL PRN (14:45)
[2021-11-29] MEDS ORDERED: ACETAMINOPHEN 325 MG TAB PO PRN (14:45)
[2021-11-29] MEDS: MAGNESIUM SULFATE 1GM/100ML 100 ML IV SCH ×2 (18:30→22:46)
[2021-11-29] MEDS: FUROSEMIDE 20 MG/2 ML VIAL IV SCH (18:30)
[2021-11-29] MEDS ORDERED: EPOETIN ALFA-EPBX 10,000 UNIT/1ML VIAL SC ONE (21:00)
[2021-11-29] MEDS: SODIUM CHLOR 0.9% PF (SALINE LOCK) 10ML VIAL/SYR IV SCH (22:00)
[2021-11-29] MEDS: FAMOTIDINE (10MG/ML) 2ML VL IV SCH (22:00)
[2021-11-29] MEDS: METOPROLOL TARTRATE 25 MG TAB PO SCH (22:29)
[2021-11-29] MEDS: AMIODARONE HCL 200 MG TAB PO SCH (22:30)
[2021-11-29] MEDS: ASCORBIC ACID 500 MG TAB PO SCH (22:31)
[2021-11-29] MEDS ORDERED: MAGNESIUM SULFATE 1GM/100ML 100 ML IV ONE (22:46)
[2021-11-29 23:11] VITALS: BP 153/58
[2021-11-30 00:49] LABS: Urine Bacteria NONE SEEN /hpf (None Seen); Urine Blood Negative /uL (Negative); Urine Specific Gravity 1.007 (1.001-1.035); Urine WBC <1 /hpf (0 - 5)
[2021-11-30 05:22] VITALS: BP 143/47
[2021-11-30] MEDS: FUROSEMIDE 20 MG/2 ML VIAL IV SCH ×2 (06:18→18:05)
[2021-11-30] MEDS: SODIUM CHLOR 0.9% PF (SALINE LOCK) 10ML VIAL/SYR IV SCH ×3 (06:18→21:21)
[2021-11-30] MEDS: LEVOTHYROXINE SODIUM 50 MCG TAB PO SCH (06:19)
[2021-11-30] MEDS ORDERED: ASCO500C49 PO (07:23)
[2021-11-30 07:40] LABS: Basophils # (auto) 0.1 10 ^3/uL (0-0.2); Basophils % (auto) 1.5 % (0.0-2.0); Eosinophils # (auto) 0.1 10 ^3/uL (0-0.8); Eosinophils % (auto) 1.1 % (0.0-7.0); Hematocrit 15.2 % (36.0-46.0); Lymphocytes # (auto) 0.9 10 ^3/uL (0.4-5.4); Lymphocytes % (auto) 15.7 % (10.0-50.0); Mean Corpuscular Hemoglobin 27.6 pg (28.0-32.0); Mean Corpuscular Hgb Conc. 31.7 g/dL (32.0-36.0); Mean Corpuscular Volume 87.1 fL (80.0-100.0); Monocytes # (auto) 0.6 10 ^3/uL (0-1.3); Monocytes % (auto) 10.3 % (0.0-12.0); Neutrophils # (auto) 4.2 10 ^3/uL (1.6-8.6); Neutrophils % (auto) 71.4 % (37.0-80.0); Nucleated Red Blood Cells % 0.3 %; Potassium 3.8 mmol/L (3.5-5.1); Red Blood Cells 1.74 10^6/uL (4.0-5.20); White Blood Cell 5.9 10^3/uL (4.4-10.8)
[2021-11-30 07:41] LABS: Red Cell Distribution Width 20.8 % (11.8-14.3)
[2021-11-30 07:49] LABS: Hemoglobin 4.8 g/dL (12.2-16.2)
[2021-11-30 07:51] LABS: Albumin 2.5 g/dL (3.4-5.0); BUN/Creatinine Ratio 11.3; Bilirubin, Total 0.4 mg/dL (0.2-1.0); Calcium 8.4 mg/dL (8.5-10.1); Total Protein 6.1 g/dL (6.4-8.2)
[2021-11-30 08:00] VITALS: BP_SYST 100; BP_SYST 125; BP_DIAS 31; BP_DIAS 59
[2021-11-30] MEDS ORDERED: PIPERACILLIN-TAZOB 3.375GM 100 ML IV ONE (09:00)
[2021-11-30 09:04] VITALS: BP 122/59
[2021-11-30] MEDS: ASPirin 81 mg TAB PO SCH (10:00)
[2021-11-30] MEDS: ASCORBIC ACID 500 MG TAB PO SCH ×2 (10:03→21:21)
[2021-11-30] MEDS: AMIODARONE HCL 200 MG TAB PO SCH ×2 (10:04→21:21)
[2021-11-30] MEDS: ZINC SULFATE 220mg CAP or TAB PO SCH (10:04)
[2021-11-30] MEDS: PIPERACILLIN-TAZOB 3.375GM 100 ML IV SCH ×3 (10:05→21:21)
[2021-11-30] MEDS: MEGESTROL ACET 400MG/10ML ORAL SUSP PO SCH (10:05)
[2021-11-30] MEDS: METOPROLOL TARTRATE 25 MG TAB PO SCH ×2 (10:05→21:23)
[2021-11-30 12:00] VITALS: BP 114/39
[2021-11-30] MEDS ORDERED: SODIUM FERR GLUC 62.5MG/5ML 125 MG in SODIUM CHL 0.9% 100 ML IV SCH (12:00)
[2021-11-30] MEDS: CYANOCOBALAMIN (B-12) 1000 MCG/1 ML VIAL IM SCH (12:18)
[2021-11-30] MEDS: FOLIC ACID 1 MG TAB PO SCH (12:19)
[2021-11-30] MEDS: ONDANSETRON HCL 4 MG/2 ML VIAL IV PRN (12:45)
[2021-11-30] MEDS: SODIUM FERR GLUC 62.5MG/5ML 125 MG in SODIUM CHL 0.9% 100 ML IV SCH (14:25)
[2021-11-30 16:43] VITALS: BP 134/64
[2021-11-30 21:57] VITALS: BP 108/36
[2021-12-01] MEDS: PIPERACILLIN-TAZOB 3.375GM 100 ML IV SCH ×4 (04:38→23:21)
[2021-12-01 04:45] VITALS: BP 135/44
[2021-12-01] MEDS: FUROSEMIDE 20 MG/2 ML VIAL IV SCH ×2 (06:12→18:02)
[2021-12-01] MEDS: LEVOTHYROXINE SODIUM 50 MCG TAB PO SCH (06:12)
[2021-12-01] MEDS: SODIUM CHLOR 0.9% PF (SALINE LOCK) 10ML VIAL/SYR IV SCH ×3 (06:12→21:25)
[2021-12-01 09:00] VITALS: BP 116/53
[2021-12-01] MEDS: AMIODARONE HCL 200 MG TAB PO SCH ×2 (09:16→21:26)
[2021-12-01] MEDS: ZINC SULFATE 220mg CAP or TAB PO SCH (09:16)
[2021-12-01] MEDS: ASCORBIC ACID 500 MG TAB PO SCH ×2 (09:16→21:25)
[2021-12-01] MEDS: CYANOCOBALAMIN (B-12) 1000 MCG/1 ML VIAL IM SCH (09:18)
[2021-12-01] MEDS: FAMOTIDINE (10MG/ML) 2ML VL IV SCH (09:18)
[2021-12-01] MEDS: FOLIC ACID 1 MG TAB PO SCH (09:19)
[2021-12-01] MEDS: MEGESTROL ACET 400MG/10ML ORAL SUSP PO SCH (09:19)
[2021-12-01] MEDS: ASPirin 81 mg TAB PO SCH (09:19)
[2021-12-01] MEDS: METOPROLOL TARTRATE 25 MG TAB PO SCH ×2 (09:20→21:26)
[2021-12-01 13:00] VITALS: BP 122/53
[2021-12-01] MEDS: SODIUM FERR GLUC 62.5MG/5ML 125 MG in SODIUM CHL 0.9% 100 ML IV SCH (14:12)
[2021-12-01 15:34] LABS: Basophils # (auto) 0 10 ^3/uL (0-0.2); Eosinophils # (auto) 0 10 ^3/uL (0-0.8); Eosinophils % (auto) 0.5 % (0.0-7.0); Lymphocytes # (auto) 0.7 10 ^3/uL (0.4-5.4); Mean Corpuscular Volume 88.6 fL (80.0-100.0); Monocytes # (auto) 0.7 10 ^3/uL (0-1.3); Neutrophils # (auto) 4.5 10 ^3/uL (1.6-8.6); Nucleated Red Blood Cells % 0.4 %
[2021-12-01 15:35] LABS: Basophils % (auto) 0.8 % (0.0-2.0); Hematocrit 16.4 % (36.0-46.0); Mean Corpuscular Hemoglobin 28.2 pg (28.0-32.0); Mean Corpuscular Hgb Conc. 31.8 g/dL (32.0-36.0); Monocytes % (auto) 11.3 % (0.0-12.0); Neutrophils % (auto) 76.4 % (37.0-80.0); Red Blood Cells 1.85 10^6/uL (4.0-5.20); Red Cell Distribution Width 21.1 % (11.8-14.3); White Blood Cell 5.9 10^3/uL (4.4-10.8)
[2021-12-01 15:38] LABS: Hemoglobin 5.2 g/dL (12.2-16.2)
[2021-12-01 17:00] VITALS: BP 132/65
[2021-12-01 22:00] VITALS: BP 131/48
[2021-12-02 05:00] VITALS: BP 116/84
[2021-12-02] MEDS: FUROSEMIDE 20 MG/2 ML VIAL IV SCH (05:37)
[2021-12-02] MEDS: SODIUM CHLOR 0.9% PF (SALINE LOCK) 10ML VIAL/SYR IV SCH ×3 (05:37→23:25)
[2021-12-02] MEDS: LEVOTHYROXINE SODIUM 50 MCG TAB PO SCH (05:37)
[2021-12-02] MEDS: PIPERACILLIN-TAZOB 3.375GM 100 ML IV SCH ×3 (05:37→18:01)
[2021-12-02 05:46] LABS: Basophils # (auto) 0 10 ^3/uL (0-0.2); Eosinophils # (auto) 0 10 ^3/uL (0-0.8); Lymphocytes # (auto) 0.6 10 ^3/uL (0.4-5.4); Monocytes # (auto) 0.6 10 ^3/uL (0-1.3); Neutrophils # (auto) 3.7 10 ^3/uL (1.6-8.6); Nucleated Red Blood Cells % 0.2 %
[2021-12-02 05:50] LABS: Basophils % (auto) 0.7 % (0.0-2.0); Eosinophils % (auto) 0.9 % (0.0-7.0); Hematocrit 15.6 % (36.0-46.0); Mean Corpuscular Hemoglobin 28.5 pg (28.0-32.0); Mean Corpuscular Hgb Conc. 32.4 g/dL (32.0-36.0); Mean Corpuscular Volume 87.9 fL (80.0-100.0); Monocytes % (auto) 11.5 % (0.0-12.0); Neutrophils % (auto) 74.9 % (37.0-80.0); Red Blood Cells 1.77 10^6/uL (4.0-5.20); Red Cell Distribution Width 20.7 % (11.8-14.3); White Blood Cell 4.9 10^3/uL (4.4-10.8)
[2021-12-02 06:23] LABS: Hemoglobin 5.1 g/dL (12.2-16.2)
[2021-12-02 06:30] LABS: BUN/Creatinine Ratio 11.1; Calcium 8.7 mg/dL (8.5-10.1)
[2021-12-02] MEDS ORDERED: POTASSIUM EFFERVESENT TAB 25 MEQ PO ONE (08:15)
[2021-12-02 08:35] VITALS: BP 119/49
[2021-12-02] MEDS: CYANOCOBALAMIN (B-12) 1000 MCG/1 ML VIAL IM SCH (09:12)
[2021-12-02] MEDS: FAMOTIDINE (10MG/ML) 2ML VL IV SCH (09:13)
[2021-12-02] MEDS: ASPirin 81 mg TAB PO SCH (09:14)
[2021-12-02] MEDS: ZINC SULFATE 220mg CAP or TAB PO SCH (09:14)
[2021-12-02] MEDS: AMIODARONE HCL 200 MG TAB PO SCH ×2 (09:14→22:00)
[2021-12-02] MEDS: FOLIC ACID 1 MG TAB PO SCH (09:14)
[2021-12-02] MEDS: ASCORBIC ACID 500 MG TAB PO SCH ×2 (09:15→22:00)
[2021-12-02] MEDS: MEGESTROL ACET 400MG/10ML ORAL SUSP PO SCH (09:15)
[2021-12-02] MEDS ORDERED: METOPROLOL TARTRATE 25 MG TAB PO SCH (10:00)
[2021-12-02] MEDS: SODIUM FERR GLUC 62.5MG/5ML 125 MG in SODIUM CHL 0.9% 100 ML IV SCH (11:43)
[2021-12-02 12:35] VITALS: BP 115/40
[2021-12-02 14:20] VITALS: BP 145/79
[2021-12-02 22:00] VITALS: BP 133/59
[2021-12-03 05:00] VITALS: BP 118/70
[2021-12-03] MEDS: LEVOTHYROXINE SODIUM 50 MCG TAB PO SCH (06:25)
[2021-12-03] MEDS: SODIUM CHLOR 0.9% PF (SALINE LOCK) 10ML VIAL/SYR IV SCH ×3 (06:25→22:12)
[2021-12-03] MEDS: PIPERACILLIN-TAZOB 3.375GM 100 ML IV SCH ×2 (06:25)
[2021-12-03 08:55] VITALS: BP 132/48
[2021-12-03] MEDS: FOLIC ACID 1 MG TAB PO SCH (09:22)
[2021-12-03] MEDS: FAMOTIDINE (10MG/ML) 2ML VL IV SCH (09:22)
[2021-12-03] MEDS: AMIODARONE HCL 200 MG TAB PO SCH ×2 (09:22→22:13)
[2021-12-03] MEDS: ASCORBIC ACID 500 MG TAB PO SCH (09:24)
[2021-12-03] MEDS: MEGESTROL ACET 400MG/10ML ORAL SUSP PO SCH (09:24)
[2021-12-03 09:34] LABS: Basophils # (auto) 0 10 ^3/uL (0-0.2); Lymphocytes # (auto) 0.8 10 ^3/uL (0.4-5.4)
[2021-12-03 09:36] LABS: Basophils % (auto) 0.5 % (0.0-2.0); Eosinophils # (auto) 0.1 10 ^3/uL (0-0.8); Eosinophils % (auto) 1.1 % (0.0-7.0); Hematocrit 19.1 % (36.0-46.0); Lymphocytes % (auto) 14.2 % (10.0-50.0); Mean Corpuscular Hemoglobin 27.6 pg (28.0-32.0); Mean Corpuscular Hgb Conc. 31.1 g/dL (32.0-36.0); Mean Corpuscular Volume 88.9 fL (80.0-100.0); Monocytes # (auto) 0.8 10 ^3/uL (0-1.3); Monocytes % (auto) 13.6 % (0.0-12.0); Neutrophils # (auto) 3.9 10 ^3/uL (1.6-8.6); Neutrophils % (auto) 70.6 % (37.0-80.0); Nucleated Red Blood Cells % 0.3 %; Red Blood Cells 2.14 10^6/uL (4.0-5.20); White Blood Cell 5.5 10^3/uL (4.4-10.8)
[2021-12-03 09:40] LABS: Hemoglobin 5.9 g/dL (12.2-16.2); Red Cell Distribution Width 21.1 % (11.8-14.3)
[2021-12-03] MEDS: CYANOCOBALAMIN (B-12) 1000 MCG/1 ML VIAL IM SCH (09:44)
[2021-12-03 10:00] LABS: Potassium 3.6 mmol/L (3.5-5.1)
[2021-12-03 10:08] LABS: Calcium 8.8 mg/dL (8.5-10.1)
[2021-12-03 11:01] LABS: INR 1.17 (0.9-1.15); Partial Thromboplastin Time 27.1 sec (23.6-33.0)
[2021-12-03] MEDS: ONDANSETRON HCL 4 MG/2 ML VIAL IV PRN (11:46)
[2021-12-03] MEDS: SODIUM FERR GLUC 62.5MG/5ML 125 MG in SODIUM CHL 0.9% 100 ML IV SCH (11:47)
[2021-12-03 13:00] VITALS: BP 114/42
[2021-12-03] MEDS: PIPERACILLIN-TAZOB 2.25GM 50 ML IV SCH ×2 (13:21→18:00)
[2021-12-03 17:00] VITALS: BP 112/47
[2021-12-03 22:00] VITALS: BP 110/39
[2021-12-04] MEDS: PIPERACILLIN-TAZOB 2.25GM 50 ML IV SCH ×2 (00:07→06:08)
[2021-12-04 05:00] VITALS: BP 143/49
[2021-12-04] MEDS: LEVOTHYROXINE SODIUM 50 MCG TAB PO SCH (06:08)
[2021-12-04] MEDS: SODIUM CHLOR 0.9% PF (SALINE LOCK) 10ML VIAL/SYR IV SCH ×3 (06:08→22:58)
[2021-12-04 08:00] VITALS: BP 131/74
[2021-12-04] MEDS: FAMOTIDINE (10MG/ML) 2ML VL IV SCH (10:05)
[2021-12-04] MEDS: CYANOCOBALAMIN (B-12) 1000 MCG/1 ML VIAL IM SCH (10:05)
[2021-12-04] MEDS: AMIODARONE HCL 200 MG TAB PO SCH ×2 (10:06→22:59)
[2021-12-04] MEDS: FOLIC ACID 1 MG TAB PO SCH (10:06)
[2021-12-04] MEDS: MEGESTROL ACET 400MG/10ML ORAL SUSP PO SCH (10:06)
[2021-12-04] MEDS: SODIUM FERR GLUC 62.5MG/5ML 125 MG in SODIUM CHL 0.9% 100 ML IV SCH (11:50)
[2021-12-04] MEDS ORDERED: FEBU40TA3 PO (11:58)
[2021-12-04 12:00] VITALS: BP 123/54
[2021-12-04 16:00] VITALS: BP 125/51
[2021-12-04 22:00] VITALS: BP 101/35
[2021-12-04] MEDS: LINEZOLID 600MG/300ML 300 ML IV SCH (22:58)
[2021-12-05 05:00] VITALS: BP 113/49
[2021-12-05] MEDS: SODIUM CHLOR 0.9% PF (SALINE LOCK) 10ML VIAL/SYR IV SCH (05:10)
[2021-12-05 05:27] LABS: Basophils # (auto) 0 10 ^3/uL (0-0.2); Eosinophils # (auto) 0.1 10 ^3/uL (0-0.8); Mean Corpuscular Hemoglobin 27.5 pg (28.0-32.0); Monocytes # (auto) 0.6 10 ^3/uL (0-1.3); Nucleated Red Blood Cells % 0.1 %; White Blood Cell 4.9 10^3/uL (4.4-10.8)
[2021-12-05 05:30] LABS: Basophils % (auto) 0.6 % (0.0-2.0); Eosinophils % (auto) 2.7 % (0.0-7.0); Hematocrit 17.8 % (36.0-46.0); Lymphocytes % (auto) 21.1 % (10.0-50.0); Mean Corpuscular Hgb Conc. 31.7 g/dL (32.0-36.0); Mean Corpuscular Volume 86.8 fL (80.0-100.0); Neutrophils # (auto) 3.1 10 ^3/uL (1.6-8.6); Neutrophils % (auto) 63.6 % (37.0-80.0); Red Blood Cells 2.05 10^6/uL (4.0-5.20)
[2021-12-05 06:06] LABS: Red Cell Distribution Width 20.4 % (11.8-14.3)
[2021-12-05 06:07] LABS: Hemoglobin 5.6 g/dL (12.2-16.2)
[2021-12-05] MEDS: LEVOTHYROXINE SODIUM 50 MCG TAB PO SCH (06:59)
[2021-12-05 08:00] VITALS: BP 124/55
[2021-12-05] MEDS: FAMOTIDINE (10MG/ML) 2ML VL IV SCH (09:53)
[2021-12-05] MEDS: CYANOCOBALAMIN (B-12) 1000 MCG/1 ML VIAL IM SCH (09:53)
[2021-12-05] MEDS: LINEZOLID 600MG/300ML 300 ML IV SCH (09:54)
[2021-12-05] MEDS: MEGESTROL ACET 400MG/10ML ORAL SUSP PO SCH (09:54)
[2021-12-05] MEDS: AMIODARONE HCL 200 MG TAB PO SCH (09:54)
[2021-12-05] MEDS: FOLIC ACID 1 MG TAB PO SCH (09:54)
[2021-12-05 12:00] VITALS: BP 116/54
[2021-12-05 14:13] VITALS: BP 116/54
== END 2021-12-05 15:59 | DRG 871 ==
LOC: ER 09:39 → TELE 14:32 → TELE-CENTR 17:04
PROVIDERS: ADMIT Nurse Practitioner Family; ATTEND Internal Medicine
PROC: 05H933Z Insertion of Infusion Device into Right Brachial Vein, Percutaneous Approach (ICD-10-PCS; principal; 2021-12-02)
PROC: B54MZZA Ultrasonography of Right Upper Extremity Veins, Guidance (ICD-10-PCS; 2021-12-02)
PROC: 05HC33Z Insertion of Infusion Device into Left Basilic Vein, Percutaneous Approach (ICD-10-PCS; 2021-12-03)
PROC: B54NZZA Ultrasonography of Left Upper Extremity Veins, Guidance (ICD-10-PCS; 2021-12-03)
DX: A41.81 Sepsis due to Enterococcus (principal); I50.33 Acute on chronic diastolic (congestive) heart failure; I21.4 Non-ST elevation (NSTEMI) myocardial infarction; I13.0 Hypertensive heart and chronic kidney disease with heart failure and stage 1 through stage 4 chronic kidney disease, or unspecified chronic kidney disease; J98.11 Atelectasis; Z16.21 Resistance to vancomycin; D64.9 Anemia, unspecified; E03.9 Hypothyroidism, unspecified; E66.9 Obesity, unspecified; E83.42 Hypomagnesemia; E86.0 Dehydration; N18.30 Chronic kidney disease, stage 3 unspecified; F03.90 Unspecified dementia, unspecified severity, without behavioral disturbance, psychotic disturbance, mood disturbance, and anxiety; I48.0 Paroxysmal atrial fibrillation; Z20.822 Contact with and (suspected) exposure to COVID-19; Z53.29 Procedure and treatment not carried out because of patient's decision for other reasons; K29.70 Gastritis, unspecified, without bleeding; Z93.3 Colostomy status; Z83.3 Family history of diabetes mellitus; Z82.49 Family history of ischemic heart disease and other diseases of the circulatory system; Z68.24 Body mass index [BMI] 24.0-24.9, adult
CPT/HCPCS: 36415; 74176; 80048; 80053; 81001; 83605; 83690; 83735; 83880; 84100; 84132; 84443; 84484; 85025; 85610; 85730; 87040; 87077; 87186; 93005; 96361; 96365; 96375; 97110; 97116; 97163; 97530; 99291; G0378; J2405; J2543; J3490

== ENCOUNTER 2023-01-21 08:01 | Inpatient (IN) | payer OTHER, MEDICARE, BC ==
[~2023-01-21] VITALS: Ht 160 cm; Wt 71.3 kg
[~2023-01-21 08:01] MED LIST changes: -ACET-1304 PO; +ASCO500C49 PO; -BISA10SU45 RE; +FEBU40TA3 PO; -FURO40TA4 PO; -IPRA0.00 IN; -MOMLQ PO; -NIFE-3 PO; -NUTRCAP PO
[2023-01-21 09:42] LABS: Basophils # (auto) 0 10 ^3/uL (0-0.2); Basophils % (auto) 0.1 % (0.0-2.0); Eosinophils # (auto) 0 10 ^3/uL (0-0.8); Eosinophils % (auto) 0.1 % (0.0-7.0); Hematocrit 46.3 % (36.0-46.0); Hemoglobin 14.9 g/dL (12.2-16.2); Lymphocytes # (auto) 0.4 10 ^3/uL (0.4-5.4); Lymphocytes % (auto) 2.5 % (10.0-50.0); Mean Corpuscular Hemoglobin 33.3 pg (28.0-32.0); Mean Corpuscular Hgb Conc. 32.2 g/dL (32.0-36.0); Mean Corpuscular Volume 103.4 fL (80.0-100.0); Neutrophils # (auto) 12.8 10 ^3/uL (1.6-8.6); Neutrophils % (auto) 90.3 % (37.0-80.0); Nucleated Red Blood Cells % 0.1 %; Red Blood Cells 4.47 10^6/uL (4.0-5.20); Red Cell Distribution Width 13.3 % (11.8-14.3); White Blood Cell 14.1 10^3/uL (4.4-10.8)
[2023-01-21 09:48] LABS: Albumin 3.5 g/dL (3.4-5.0); Calcium 9.3 mg/dL (8.5-10.1); Potassium 4.3 mmol/L (3.5-5.1)
[2023-01-21 09:52] LABS: BUN/Creatinine Ratio 43.5 (10.0-20.0); Bilirubin, Total 0.2 mg/dL (0.2-1.0); Total Protein 6.3 g/dL (6.4-8.2)
[2023-01-21] MEDS ORDERED: MORPHINE SULFATE INJ 2 MG/ml SYRG IV PRN (12:00)
[2023-01-21] MEDS ORDERED: ONDANSETRON HCL 4 MG/2 ML VIAL IV PRN (12:00)
[2023-01-21] MEDS ORDERED: NITROGLYCERIN 0.4 MG SL TAB SL PRN (12:00)
[2023-01-21] MEDS ORDERED: PANTOPRAZOLE 40 MG/10 ML VIAL INJ IV ONE (12:00)
[2023-01-21 14:53] LABS: Urine Bacteria NONE SEEN /hpf (None Seen); Urine Blood Negative /uL (Negative); Urine Hyaline Cast FEW /lpf (0 - 2); Urine Specific Gravity 1.016 (1.001-1.035); Urine WBC 2 /hpf (0 - 5)
[2023-01-21] MEDS: SODIUM CHLORIDE 0.9% 1,000 ML IV SCH (17:44)
[2023-01-21] MEDS: SODIUM BICARBONATE 650 MG TAB PO SCH (17:50)
[2023-01-21] MEDS: ACETAMINOPHEN 325 MG TAB PO PRN (17:50)
[2023-01-21 22:00] VITALS: BP 126/49
[2023-01-21] MEDS: FERROUS SULFATE 325mg EC TAB PO SCH (22:23)
[2023-01-22] VITALS (7 sets, daily range): BP systolic 98–135; BP diastolic 33–50
[2023-01-22] MEDS: SODIUM CHLORIDE 0.9% 1,000 ML IV SCH ×2 (04:40→11:41)
[2023-01-22] MEDS: ACETAMINOPHEN 325 MG TAB PO PRN ×3 (05:06→21:45)
[2023-01-22] MEDS: LEVOTHYROXINE SODIUM 25 MCG TAB PO SCH (06:45)
[2023-01-22 07:31] LABS: Eosinophils # (auto) 0 10 ^3/uL (0-0.8); Hemoglobin 11.9 g/dL (12.2-16.2); Lymphocytes # (auto) 0.6 10 ^3/uL (0.4-5.4)
[2023-01-22 07:35] LABS: Basophils # (auto) 0 10 ^3/uL (0-0.2); Basophils % (auto) 0.2 % (0.0-2.0); Eosinophils % (auto) 0.1 % (0.0-7.0); Hematocrit 35.5 % (36.0-46.0); Mean Corpuscular Hemoglobin 34.6 pg (28.0-32.0); Mean Corpuscular Hgb Conc. 33.4 g/dL (32.0-36.0); Mean Corpuscular Volume 103.8 fL (80.0-100.0); Monocytes # (auto) 0.7 10 ^3/uL (0-1.3); Neutrophils # (auto) 6.2 10 ^3/uL (1.6-8.6); Neutrophils % (auto) 82.7 % (37.0-80.0); Nucleated Red Blood Cells % 0.1 %; Red Blood Cells 3.42 10^6/uL (4.0-5.20); Red Cell Distribution Width 13.6 % (11.8-14.3); White Blood Cell 7.5 10^3/uL (4.4-10.8)
[2023-01-22 07:55] LABS: Albumin 2.5 g/dL (3.4-5.0); BUN/Creatinine Ratio 33.5 (10.0-20.0); Calcium 8.6 mg/dL (8.5-10.1); Potassium 4.9 mmol/L (3.5-5.1)
[2023-01-22 07:57] LABS: Bilirubin, Total 0.2 mg/dL (0.2-1.0); Total Protein 5.7 g/dL (6.4-8.2)
[2023-01-22] MEDS: FERROUS SULFATE 325mg EC TAB PO SCH ×2 (09:36→21:44)
[2023-01-22] MEDS: SODIUM BICARBONATE 650 MG TAB PO SCH (09:36)
[2023-01-22] MEDS: PANTOPRAZOLE 40 MG/10 ML VIAL INJ IV SCH (09:36)
[2023-01-22] MEDS ORDERED: levoFLOXacin 500MG 100 ML IV ONE (11:30)
[2023-01-22] MEDS: LACTATED RINGER'S 1,000 ML IV SCH (16:48)
[2023-01-23] VITALS (7 sets, daily range): BP systolic 117–178; BP diastolic 46–99
[2023-01-23 05:38] LABS: Anion Gap 11 (5-15); BUN/Creatinine Ratio 32.6 (10.0-20.0); Calcium 8.3 mg/dL (8.5-10.1); Carbon Dioxide 12 mmol/L (21-32); Chloride 117 mmol/L (98-107); GFR African American 21 mL/min; GFR Non-African American 17 mL/min; Glucose 75 mg/dL (74-106); Potassium 4.8 mmol/L (3.5-5.1); Sodium 140 mmol/L (136-145)
[2023-01-23] MEDS: LEVOTHYROXINE SODIUM 25 MCG TAB PO SCH (06:01)
[2023-01-23 06:13] LABS: Blood Urea Nitrogen 92 mg/dL (7-18)
[2023-01-23] MEDS: ACETAMINOPHEN 325 MG TAB PO PRN ×3 (09:59→23:23)
[2023-01-23] MEDS: SODIUM BICARBONATE 650 MG TAB PO SCH (09:59)
[2023-01-23] MEDS: FERROUS SULFATE 325mg EC TAB PO SCH ×2 (09:59→20:25)
[2023-01-23] MEDS: PANTOPRAZOLE 40 MG/10 ML VIAL INJ IV SCH (10:01)
[2023-01-23] MEDS: levoFLOXacin 250MG 50 ML IV SCH (11:34)
[2023-01-23] MEDS: LACTATED RINGER'S 1,000 ML IV SCH (11:35)
[2023-01-23] MEDS: hydrALAZINE HCL 20 MG/ML VL IV PRN (22:43)
[2023-01-24 05:00] VITALS: BP 132/66
[2023-01-24] MEDS: LEVOTHYROXINE SODIUM 25 MCG TAB PO SCH (06:10)
[2023-01-24] MEDS: LACTATED RINGER'S 1,000 ML IV SCH (06:26)
[2023-01-24] MEDS: ACETAMINOPHEN 325 MG TAB PO PRN ×4 (06:27→18:58)
[2023-01-24 06:33] LABS: Calcium 8.5 mg/dL (8.5-10.1); Potassium 4.4 mmol/L (3.5-5.1)
[2023-01-24 06:35] LABS: BUN/Creatinine Ratio 35.6 (10.0-20.0)
[2023-01-24 08:30] VITALS: BP 156/54
[2023-01-24 09:00] VITALS: BP 156/54
[2023-01-24] MEDS: SODIUM BICARBONATE 650 MG TAB PO SCH (09:51)
[2023-01-24] MEDS: PANTOPRAZOLE 40 MG/10 ML VIAL INJ IV SCH (09:51)
[2023-01-24] MEDS: levoFLOXacin 250MG 50 ML IV SCH (09:51)
[2023-01-24] MEDS: FERROUS SULFATE 325mg EC TAB PO SCH ×2 (09:51→22:18)
[2023-01-24 10:25] LABS: Basophils # (auto) 0 10 ^3/uL (0-0.2); Basophils % (auto) 0.4 % (0.0-2.0); Lymphocytes # (auto) 1.2 10 ^3/uL (0.4-5.4); Monocytes # (auto) 0.6 10 ^3/uL (0-1.3); Neutrophils # (auto) 5.3 10 ^3/uL (1.6-8.6); White Blood Cell 7.2 10^3/uL (4.4-10.8)
[2023-01-24 10:27] LABS: Eosinophils # (auto) 0 10 ^3/uL (0-0.8); Eosinophils % (auto) 0.6 % (0.0-7.0); Hematocrit 37.1 % (36.0-46.0); Lymphocytes % (auto) 16.9 % (10.0-50.0); Mean Corpuscular Hemoglobin 33.8 pg (28.0-32.0); Mean Corpuscular Hgb Conc. 32.5 g/dL (32.0-36.0); Mean Corpuscular Volume 104.2 fL (80.0-100.0); Monocytes % (auto) 8.4 % (0.0-12.0); Neutrophils % (auto) 73.7 % (37.0-80.0); Nucleated Red Blood Cells % 0.2 %; Red Blood Cells 3.56 10^6/uL (4.0-5.20); Red Cell Distribution Width 13.6 % (11.8-14.3)
[2023-01-24] MEDS ORDERED: DONETAB6 PO (10:58)
[2023-01-24] MEDS ORDERED: MEMA21CA8 PO (10:59)
[2023-01-24] MEDS ORDERED: ALEN70TA74 PO (11:00)
[2023-01-24] MEDS ORDERED: OXY5T PO (11:03)
[2023-01-24] MEDS ORDERED: MEMANTINE HCL 5 MG TAB PO ONE (11:15)
[2023-01-24 13:00] VITALS: BP 135/46
[2023-01-24 16:52] VITALS: BP 155/53
[2023-01-24 22:00] VITALS: BP 142/67
[2023-01-24] MEDS: DONEPEZIL HYDROCHLORIDE 5 MG TAB PO SCH (22:18)
[2023-01-25] MEDS: LACTATED RINGER'S 1,000 ML IV SCH ×2 (03:15→23:52)
[2023-01-25 05:07] VITALS: BP 124/61
[2023-01-25] MEDS ORDERED: ALENDRONATE SODIUM 10 MG TAB PO SCH (06:00)
[2023-01-25] MEDS: LEVOTHYROXINE SODIUM 25 MCG TAB PO SCH (06:29)
[2023-01-25 08:30] VITALS: BP 145/65
[2023-01-25 09:00] VITALS: BP 145/65
[2023-01-25] MEDS: MEMANTINE 28 MG PO SCH (10:00)
[2023-01-25] MEDS: PANTOPRAZOLE 40 MG/10 ML VIAL INJ IV SCH (10:08)
[2023-01-25] MEDS: FERROUS SULFATE 325mg EC TAB PO SCH ×2 (10:08→21:14)
[2023-01-25] MEDS: SODIUM BICARBONATE 650 MG TAB PO SCH (10:08)
[2023-01-25] MEDS: levoFLOXacin 250MG 50 ML IV SCH (10:09)
[2023-01-25 13:00] VITALS: BP 133/89
[2023-01-25] MEDS: ACETAMINOPHEN 325 MG TAB PO PRN (16:53)
[2023-01-25 17:00] VITALS: BP 138/69
[2023-01-25] MEDS: DONEPEZIL HYDROCHLORIDE 5 MG TAB PO SCH (21:14)
[2023-01-25 23:35] VITALS: BP 145/67
[2023-01-26] VITALS (7 sets, daily range): BP systolic 130–155; BP diastolic 47–69
[2023-01-26] MEDS: ACETAMINOPHEN 325 MG TAB PO PRN ×2 (05:44→16:15)
[2023-01-26] MEDS: LEVOTHYROXINE SODIUM 25 MCG TAB PO SCH (06:02)
[2023-01-26] MEDS: hydrALAZINE HCL 20 MG/ML VL IV PRN (06:21)
[2023-01-26] MEDS: MEMANTINE 28 MG PO SCH (10:29)
[2023-01-26] MEDS: SODIUM BICARBONATE 650 MG TAB PO SCH (10:29)
[2023-01-26] MEDS: PANTOPRAZOLE 40 MG/10 ML VIAL INJ IV SCH (10:29)
[2023-01-26] MEDS: levoFLOXacin 250MG 50 ML IV SCH (10:29)
[2023-01-26] MEDS: FERROUS SULFATE 325mg EC TAB PO SCH ×2 (10:29→21:03)
[2023-01-26 15:08] LABS: Anion Gap 5 (5-15); Calcium 8.6 mg/dL (8.5-10.1); Carbon Dioxide 15 mmol/L (21-32); Chloride 118 mmol/L (98-107); Glucose 100 mg/dL (74-106); Potassium 4.3 mmol/L (3.5-5.1); Sodium 138 mmol/L (136-145)
[2023-01-26 15:14] LABS: BUN/Creatinine Ratio 34.8 (10.0-20.0); Blood Urea Nitrogen 70 mg/dL (7-18); GFR African American 30 mL/min; GFR Non-African American 25 mL/min
[2023-01-26] MEDS: SODIUM BICARBONATE 50ML VIAL 50 ML in SOD CHL 0.45% 1,000 ML IV SCH ×3 (15:50→22:11)
[2023-01-26] MEDS: DONEPEZIL HYDROCHLORIDE 5 MG TAB PO SCH (21:03)
[2023-01-27 05:00] VITALS: BP_SYST 102; BP_SYST 151; BP_DIAS 62
[2023-01-27] MEDS: SODIUM BICARBONATE 50ML VIAL 50 ML in SOD CHL 0.45% 1,000 ML IV SCH ×2 (05:12→08:25)
[2023-01-27] MEDS: hydrALAZINE HCL 20 MG/ML VL IV PRN (05:13)
[2023-01-27] MEDS: LEVOTHYROXINE SODIUM 25 MCG TAB PO SCH (05:50)
[2023-01-27] MEDS: ACETAMINOPHEN 325 MG TAB PO PRN (07:04)
[2023-01-27 08:30] VITALS: BP 133/55
[2023-01-27] MEDS: FERROUS SULFATE 325mg EC TAB PO SCH (08:35)
[2023-01-27] MEDS: SODIUM BICARBONATE 650 MG TAB PO SCH (08:35)
[2023-01-27] MEDS: PANTOPRAZOLE 40 MG/10 ML VIAL INJ IV SCH (08:35)
[2023-01-27] MEDS: MEMANTINE 28 MG PO SCH (08:43)
[2023-01-27] MEDS: levoFLOXacin 250MG 50 ML IV SCH (08:58)
[2023-01-27 11:31] LABS: Protein, Urine 20.5 mg/dL (0.0-11.9)
[2023-01-27 12:30] VITALS: BP 113/46
== END 2023-01-27 17:42 | disposition home health service (06) | DRG 871 ==
LOC: ER 08:01 → EDUNIT# 08:01 → EDBD 08:01 → OVERFLOW 12:47 → WEST WING 17:34
PROVIDERS: ADMIT Nurse Practitioner Family; ATTEND Family Medicine
DX: A41.9 Sepsis, unspecified organism (principal); I50.43 Acute on chronic combined systolic (congestive) and diastolic (congestive) heart failure; J18.9 Pneumonia, unspecified organism; S72.431A Displaced fracture of medial condyle of right femur, initial encounter for closed fracture; M97.11XA Periprosthetic fracture around internal prosthetic right knee joint, initial encounter; N17.9 Acute kidney failure, unspecified; K94.01 Colostomy hemorrhage; N18.4 Chronic kidney disease, stage 4 (severe); I13.0 Hypertensive heart and chronic kidney disease with heart failure and stage 1 through stage 4 chronic kidney disease, or unspecified chronic kidney disease; D62 Acute posthemorrhagic anemia; N39.0 Urinary tract infection, site not specified; E87.20 Acidosis, unspecified; F03.90 Unspecified dementia, unspecified severity, without behavioral disturbance, psychotic disturbance, mood disturbance, and anxiety; E03.9 Hypothyroidism, unspecified; Z96.651 Presence of right artificial knee joint; E87.8 Other disorders of electrolyte and fluid balance, not elsewhere classified; W18.39XA Other fall on same level, initial encounter; Z83.3 Family history of diabetes mellitus; Z82.49 Family history of ischemic heart disease and other diseases of the circulatory system; Y93.89 Activity, other specified; Y92.89 Other specified places as the place of occurrence of the external cause; Y99.8 Other external cause status
CPT/HCPCS: 36415; 70450; 71045; 73502; 73562; 73700; 76775; 76881; 80048; 80053; 81001; 82270; 82570; 84156; 84300; 84443; 85025; 87040; 87086; 93005; 93306; 97110; 97116; 97163; 97530; C9113; G0378; J1956

== ENCOUNTER 2023-12-29 07:46 | Inpatient (IN) | payer MEDICARE, BC, MEDICAID ==
[~2023-12-29] VITALS: Ht 160 cm; Wt 75.6 kg
[~2023-12-29 07:46] MED LIST changes: +ALEN70TA74 PO; +DONETAB6 PO; -FEBU40TA3 PO; +FEBU40TA6 PO; -GEN03OS OP; +GENT0.3S10 OP; +MEMA21CA PO; +OXY5T PO; +POTA-228 PO; -POTA10TA32 PO
[2023-12-29 07:58] VITALS: PULSE 80; RESP 12; O2SAT 98
[2023-12-29] MEDS: NALOXONE HCL 0.4 MG/ML VIAL ONE (08:16)
[2023-12-29] MEDS: SODIUM CHLORIDE 0.9% 500 ML IVB ONE (08:18)
[2023-12-29] MEDS: NALOXONE HCL 0.4 MG/ML VIAL IV ONE (08:18)
[2023-12-29 09:06] LABS: Basophils # (auto) 0 10 ^3/uL (0-0.2); Eosinophils # (auto) 0 10 ^3/uL (0-0.8); Eosinophils % (auto) 0.1 % (0.0-7.0); Hematocrit 36.4 % (36.0-46.0); Hemoglobin 11.7 g/dL (12.2-16.2); Lymphocytes # (auto) 0.3 10 ^3/uL (0.4-5.4); Monocytes # (auto) 0.8 10 ^3/uL (0-1.3)
[2023-12-29 09:08] LABS: Basophils % (auto) 0.1 % (0.0-2.0); Lymphocytes % (auto) 3.2 % (10.0-50.0); Mean Corpuscular Volume 103.2 fL (80.0-100.0); Monocytes % (auto) 8.3 % (0.0-12.0); Neutrophils # (auto) 8.4 10 ^3/uL (1.6-8.6); Neutrophils % (auto) 88.3 % (37.0-80.0); Red Blood Cells 3.53 10^6/uL (4.0-5.20); Red Cell Distribution Width 15.2 % (11.8-14.3); White Blood Cell 9.5 10^3/uL (4.4-10.8)
[2023-12-29 09:15] LABS: Chloride 112 mmol/L (98-107); Potassium 4.5 mmol/L (3.5-5.1); Sodium 138 mmol/L (136-145)
[2023-12-29 09:16] LABS: Anion Gap 5 (5-15); Calcium 8.8 mg/dL (8.5-10.1); Carbon Dioxide 21 mmol/L (20-30)
[2023-12-29 09:21] LABS: BUN/Creatinine Ratio 19.7 (10.0-20.0); Blood Urea Nitrogen 26 mg/dL (9-23); Glucose 79 mg/dL (74-106)
[2023-12-29] MEDS ORDERED: MORPHINE SULFATE INJ 2 MG/ml SYRG IV PRN (11:15)
[2023-12-29] MEDS ORDERED: NITROGLYCERIN 0.4 MG SL TAB SL PRN (11:15)
[2023-12-29 11:51] LABS: Triglycerides 72 mg/dL (< 150)
[2023-12-29 11:52] LABS: LDL Cholesterol 58 mg/dL (< 100)
[2023-12-29 11:53] LABS: Cholesterol 124 mg/dL (< 200); HDL Cholesterol 54 mg/dL (40-59)
[2023-12-29] MEDS: ASCORBIC ACID 500 MG TAB PO SCH (12:09)
[2023-12-29] MEDS: cefTRIAXone 1GM/50ML D5W 50 ML IV ONE (12:10)
[2023-12-29 12:11] LABS: Urine Bacteria None Seen /hpf (None Seen)
[2023-12-29] MEDS: AZITHROMYCIN 500MG/ 250ML 250 ML IV ONE (12:11)
[2023-12-29] MEDS: ACETAMINOPHEN 325 MG TAB PO PRN (12:14)
[2023-12-29 12:31] LABS: Urine Blood Negative /uL (Negative); Urine Clarity Clear (Clear); Urine Color Light-Yellow (Yellow); Urine Protein, UAD 2+ (Negative); Urine Specific Gravity 1.014 (1.001-1.035); Urine Urobilinogen Normal (Negative); Urine WBC 1 /hpf (0 - 5); Urine pH 5.5 (5.0-9.0)
[2023-12-29 12:54] LABS: Amphetamine Screen, Urine Neg (NEGATIVE); Barbiturate Scree,Urine Neg (NEGATIVE); Benzodiazephine Screen, Urine Neg (NEGATIVE); Cannabinoid Screen, Urine Neg (NEGATIVE); Cocaine Screen, Urine Neg (NEGATIVE); Opiate Scree,Urine Neg (NEGATIVE); Phencyclidine Screen, Urine Neg (NEGATIVE)
[2023-12-29] MEDS ORDERED: DONE1TAB88 PO (13:14)
[2023-12-29] MEDS ORDERED: APIX2.5T PO (13:14)
[2023-12-29] MEDS ORDERED: ACET-1881 PO (13:14)
[2023-12-29] MEDS ORDERED: MEMA10TA PO (13:14)
[2023-12-29] MEDS ORDERED: LEVO150T10 PO (13:14)
[2023-12-29] MEDS ORDERED: ASCO500T11 PO (13:14)
[2023-12-29] MEDS ORDERED: FOLI-119 PO (13:14)
[2023-12-29] MEDS ORDERED: FAMO20IN2 PO (13:14)
[2023-12-29 19:00] VITALS: BP 159/57; PULSE 84; RESP 18; TEMP 98.4; O2SAT 92
[2023-12-29 19:46] VITALS: PULSE 88
[2023-12-29 20:00] VITALS: O2SAT 99
[2023-12-29 21:00] VITALS: BP 128/53; PULSE 86; RESP 15; TEMP 98; O2SAT 99
[2023-12-29] MEDS: FERROUS SULFATE 325mg EC TAB PO SCH (22:10)
[2023-12-30] VITALS (8 sets, daily range): BP systolic 137–171; BP diastolic 37–68; PULSE 68–88; RESP 15–20; TEMP 96.8–98.7; O2SAT 95–98
[2023-12-30 05:25] LABS: Basophils # (auto) 0 10 ^3/uL (0-0.2); Basophils % (auto) 0.2 % (0.0-2.0); Eosinophils # (auto) 0 10 ^3/uL (0-0.8); Eosinophils % (auto) 0.1 % (0.0-7.0); Hematocrit 30.3 % (36.0-46.0); Hemoglobin 9.7 g/dL (12.2-16.2); Lymphocytes # (auto) 0.8 10 ^3/uL (0.4-5.4); Mean Corpuscular Hemoglobin 32.6 pg (28.0-32.0); Mean Corpuscular Volume 101.9 fL (80.0-100.0); Monocytes % (auto) 6.6 % (0.0-12.0); Neutrophils # (auto) 13.7 10 ^3/uL (1.6-8.6); Neutrophils % (auto) 88.1 % (37.0-80.0); Red Blood Cells 2.98 10^6/uL (4.0-5.20); Red Cell Distribution Width 15.1 % (11.8-14.3); White Blood Cell 15.6 10^3/uL (4.4-10.8)
[2023-12-30 05:44] LABS: Alanine Aminotransferase 19 U/L (7-40); Alkaline Phosphatase 48 U/L (46-116); Anion Gap 6 (5-15); BUN/Creatinine Ratio 22.2 (10.0-20.0); Blood Urea Nitrogen 35 mg/dL (9-23); Calcium 8.9 mg/dL (8.7-10.4); Carbon Dioxide 21 mmol/L (20-30); Chloride 109 mmol/L (98-107); Glucose 91 mg/dL (74-106); Sodium 136 mmol/L (136-145)
[2023-12-30 05:45] LABS: Albumin 3.1 g/dL (3.2-4.8); Aspartate Aminotransferase 19 U/L (13-40)
[2023-12-30 05:46] LABS: Bilirubin, Total 0.3 mg/dL (0.2-1.0)
[2023-12-30] MEDS: LEVOTHYROXINE SODIUM 100 MCG TAB PO SCH (06:05)
[2023-12-30] MEDS: LEVOTHYROXINE SODIUM 25 MCG TAB PO SCH (06:05)
[2023-12-30] MEDS ORDERED: MEMANTINE HCL PO SCH (10:00)
[2023-12-30] MEDS: ALENDRONATE SODIUM 10 MG TAB PO SCH (10:00)
[2023-12-30] MEDS ORDERED: AZITHROMYCIN 500MG/ 250ML 250 ML IV SCH (10:00)
[2023-12-30] MEDS ORDERED: FEBUXOSTAT PO SCH (10:00)
[2023-12-30] MEDS: SODIUM BICARBONATE 650 MG TAB PO SCH (10:30)
[2023-12-30] MEDS: MULTIPLE VITAMIN TAB PO SCH (10:31)
[2023-12-30] MEDS: DONEPEZIL HYDROCHLORIDE 5 MG TAB PO SCH (10:31)
[2023-12-30] MEDS: cefTRIAXone 1GM/50ML D5W 50 ML IV SCH (10:34)
[2023-12-30] MEDS: ENOXAPARIN SOD 40 MG/0.4 ML SYRINGE SC SCH (10:35)
[2023-12-30] MEDS: FUROSEMIDE 40 MG TAB PO ONE (11:19)
[2023-12-30] MEDS ORDERED: FAMO-12 PO (16:32)
[2023-12-30] MEDS ORDERED: FURO20TA3 PO (16:36)
[2023-12-30] MEDS ORDERED: HYDR12.59 PO (16:36)
[2023-12-30] MEDS: APIXABAN 2.5 MG TAB PO SCH (21:02)
[2023-12-30] MEDS: hydrALAZINE HCL 20 MG/ML VL IV PRN (21:03)
[2023-12-31] VITALS (8 sets, daily range): BP systolic 15–169; BP diastolic 43–65; PULSE 73–95; RESP 16–19; TEMP 97.3–99.3; O2SAT 93–95
[2023-12-31 05:55] LABS: Basophils # (auto) 0 10 ^3/uL (0-0.2); Basophils % (auto) 0.1 % (0.0-2.0); Eosinophils # (auto) 0 10 ^3/uL (0-0.8); Hematocrit 30.2 % (36.0-46.0); Hemoglobin 9.8 g/dL (12.2-16.2); Lymphocytes # (auto) 0.7 10 ^3/uL (0.4-5.4); Lymphocytes % (auto) 4.5 % (10.0-50.0); Mean Corpuscular Hgb Conc. 32.5 g/dL (32.0-36.0); Mean Corpuscular Volume 101.4 fL (80.0-100.0); Monocytes % (auto) 6.4 % (0.0-12.0); Neutrophils # (auto) 13.5 10 ^3/uL (1.6-8.6); Red Blood Cells 2.97 10^6/uL (4.0-5.20); White Blood Cell 15.2 10^3/uL (4.4-10.8)
[2023-12-31 06:01] LABS: Anion Gap 10 (5-15); Carbon Dioxide 20 mmol/L (20-30); Chloride 108 mmol/L (98-107); Potassium 3.8 mmol/L (3.5-5.1); Sodium 138 mmol/L (136-145)
[2023-12-31 06:02] LABS: Calcium 9.2 mg/dL (8.5-10.1)
[2023-12-31 06:07] LABS: BUN/Creatinine Ratio 26.5 (10.0-20.0); Blood Urea Nitrogen 35 mg/dL (9-23); Glucose 92 mg/dL (74-106)
[2023-12-31] MEDS: AZITHROMYCIN 250 MG TAB PO SCH (09:12)
[2023-12-31 09:13] LABS: Hepatitis B Surface Antigen Negative (Negative)
[2023-12-31] MEDS: FUROSEMIDE 40 MG TAB PO SCH (09:13)
[2023-12-31 09:34] LABS: Hepatitis C Antibody Negative (Negative)
[2023-12-31] MEDS ORDERED: ENOXAPARIN SOD 30 MG/0.3 ML SYRINGE SC SCH (10:00)
[2023-12-31] MEDS: PIPERACILLIN-TAZOB 3.375GM 100 ML IV ONE (10:49)
[2023-12-31] MEDS: LEVOTHYROXINE SODIUM 50 MCG TAB PO ONE (10:49)
[2023-12-31] MEDS: PIPERACILLIN-TAZOB 3.375GM 100 ML IV SCH (13:55)
[2024-01-01] VITALS (7 sets, daily range): BP systolic 119–163; BP diastolic 53–82; PULSE 63–94; RESP 17–19; TEMP 97.3–98.4; O2SAT 92–96
[2024-01-01] MEDS: LEVOTHYROXINE SODIUM 50 MCG TAB PO SCH (06:26)
[2024-01-02] VITALS (8 sets, daily range): BP systolic 106–160; BP diastolic 47–67; PULSE 63–86; RESP 16–18; TEMP 97.3–98.4; O2SAT 93–95
[2024-01-02 06:23] LABS: Basophils # (auto) 0 10 ^3/uL (0-0.2); Basophils % (auto) 0.4 % (0.0-2.0); Eosinophils # (auto) 0.1 10 ^3/uL (0-0.8); Eosinophils % (auto) 1.4 % (0.0-7.0); Hematocrit 28.7 % (36.0-46.0); Hemoglobin 9.4 g/dL (12.2-16.2); Lymphocytes # (auto) 0.6 10 ^3/uL (0.4-5.4); Mean Corpuscular Hemoglobin 33.4 pg (28.0-32.0); Mean Corpuscular Hgb Conc. 32.9 g/dL (32.0-36.0); Mean Corpuscular Volume 101.5 fL (80.0-100.0); Monocytes # (auto) 0.7 10 ^3/uL (0-1.3); Monocytes % (auto) 10.1 % (0.0-12.0); Neutrophils # (auto) 5.6 10 ^3/uL (1.6-8.6); Neutrophils % (auto) 79.1 % (37.0-80.0); Red Blood Cells 2.83 10^6/uL (4.0-5.20); Red Cell Distribution Width 14.9 % (11.8-14.3); White Blood Cell 7.1 10^3/uL (4.4-10.8)
[2024-01-02] MEDS: OXYCODONE W/ ACETAMINOPHEN 5/325MG TABLET PO PRN (14:33)
[2024-01-02] MEDS: OXYCODONE W/ ACETAMINOPHEN 5/325MG TABLET ONE (14:58)
[2024-01-03] VITALS (10 sets, daily range): BP systolic 107–168; BP diastolic 47–122; PULSE 66–81; RESP 17–19; TEMP 97.4–98.2; O2SAT 91–97
[2024-01-04] VITALS (8 sets, daily range): BP systolic 130–160; BP diastolic 49–65; PULSE 66–81; RESP 18–20; TEMP 97.2–98.2; O2SAT 92–94
[2024-01-04 12:58] LABS: Erythrocyte Sedimentation Rate 94 mm/hr (0-20)
[2024-01-05] VITALS (8 sets, daily range): BP systolic 127–193; BP diastolic 52–64; PULSE 63–78; RESP 18–20; TEMP 97.3–98.2; O2SAT 94–100
[2024-01-05 09:53] LABS: Basophils # (auto) 0 10 ^3/uL (0-0.2); Eosinophils # (auto) 0.2 10 ^3/uL (0-0.8); Eosinophils % (auto) 3.7 % (0.0-7.0); Hematocrit 28.3 % (36.0-46.0); Hemoglobin 9.5 g/dL (12.2-16.2); Lymphocytes % (auto) 22.7 % (10.0-50.0); Mean Corpuscular Hemoglobin 33.7 pg (28.0-32.0); Mean Corpuscular Hgb Conc. 33.5 g/dL (32.0-36.0); Mean Corpuscular Volume 100.4 fL (80.0-100.0); Monocytes # (auto) 0.4 10 ^3/uL (0-1.3); Monocytes % (auto) 8.4 % (0.0-12.0); Neutrophils # (auto) 2.8 10 ^3/uL (1.6-8.6); Neutrophils % (auto) 64.2 % (37.0-80.0); Nucleated Red Blood Cells % 0.1 %; Red Blood Cells 2.82 10^6/uL (4.0-5.20); Red Cell Distribution Width 14.9 % (11.8-14.3); White Blood Cell 4.4 10^3/uL (4.4-10.8)
[2024-01-05 10:15] LABS: Chloride 106 mmol/L (98-107); Sodium 138 mmol/L (136-145)
[2024-01-05 10:16] LABS: Anion Gap 7 (5-15); Calcium 8.9 mg/dL (8.5-10.1); Carbon Dioxide 25 mmol/L (20-30)
[2024-01-05 10:21] LABS: BUN/Creatinine Ratio 20.4 (10.0-20.0); Blood Urea Nitrogen 30 mg/dL (9-23); Glucose 126 mg/dL (74-106)
[2024-01-06] VITALS (7 sets, daily range): BP systolic 107–167; BP diastolic 43–84; PULSE 68–79; RESP 16–20; TEMP 97.2–98.3; O2SAT 92–98
[2024-01-06 08:40] LABS: Prothrombin Time 10.5 sec (9.3-11.8)
[2024-01-06] MEDS ORDERED: fentaNYL CITRATE 100 MCG/2 ML VL ONE (09:53)
[2024-01-06] MEDS ORDERED: PROPOFOL 10 MG/ML 20 ML IV ONE (09:54)
[2024-01-06] MEDS ORDERED: ePHEDrine SULFATE 50 MG/ML AMP ONE (10:27)
[2024-01-06] MEDS ORDERED: PHENYLEPHRINE HCL 10 MG/ML VL ONE (10:36)
[2024-01-06] MEDS: LIDOCAINE 1%-Mpf/Epinephrine 1:200,000 30ml VIAL ONE (10:40)
[2024-01-06] MEDS: ONDANSETRON HCL 4 MG/2 ML VIAL IV ONE (11:00)
[2024-01-07 01:00] VITALS: BP 147/58; PULSE 79; RESP 20; TEMP 97.7; O2SAT 93
[2024-01-07 05:00] VITALS: BP 119/45; PULSE 74; RESP 21; TEMP 98.1; O2SAT 94
[2024-01-07 06:57] LABS: Basophils # (auto) 0 10 ^3/uL (0-0.2); Eosinophils # (auto) 0.1 10 ^3/uL (0-0.8); Eosinophils % (auto) 2.7 % (0.0-7.0); Lymphocytes # (auto) 1.1 10 ^3/uL (0.4-5.4); Lymphocytes % (auto) 22.2 % (10.0-50.0); Mean Corpuscular Hemoglobin 33.2 pg (28.0-32.0); Mean Corpuscular Hgb Conc. 33.4 g/dL (32.0-36.0); Mean Corpuscular Volume 99.5 fL (80.0-100.0); Monocytes # (auto) 0.5 10 ^3/uL (0-1.3); Monocytes % (auto) 9.4 % (0.0-12.0); Neutrophils # (auto) 3.3 10 ^3/uL (1.6-8.6); Neutrophils % (auto) 64.7 % (37.0-80.0); Red Blood Cells 2.71 10^6/uL (4.0-5.20); Red Cell Distribution Width 14.5 % (11.8-14.3)
[2024-01-07 07:13] LABS: Anion Gap 6 (5-15); Calcium 9.1 mg/dL (8.7-10.4); Carbon Dioxide 25 mmol/L (20-30); Chloride 105 mmol/L (98-107); Potassium 4.1 mmol/L (3.5-5.1); Sodium 136 mmol/L (136-145)
[2024-01-07 07:19] LABS: BUN/Creatinine Ratio 21.8 (10.0-20.0); Blood Urea Nitrogen 29 mg/dL (9-23); Glucose 86 mg/dL (74-106)
[2024-01-07 08:00] VITALS: BP 155/60; PULSE 69; RESP 18; TEMP 98
[2024-01-07 09:00] VITALS: BP 155/60; PULSE 69; RESP 18; TEMP 98; O2SAT 92
[2024-01-07] MEDS ORDERED: AUG875T PO (10:23)
[2024-01-07] MEDS ORDERED: PRED20TA2 PO (10:23)
[2024-01-07 13:41] VITALS: BP 155/60; PULSE 69; RESP 18; TEMP 98; O2SAT 98
== END 2024-01-07 14:50 | disposition home or self-care (01) | DRG 853 ==
LOC: ER 07:46 → EDUNIT# 07:46 → EDBD 07:46 → TELE 11:15 → TELE-CENTR 18:31 → CENTRAL 01-04 21:55
PROVIDERS: ADMIT Nurse Practitioner Family; ATTEND Internal Medicine
PROC: 03BT3ZX Excision of Left Temporal Artery, Percutaneous Approach, Diagnostic (ICD-10-PCS; principal; 2024-01-06 10:14)
DX: A41.9 Sepsis, unspecified organism (principal); G92.8 Other toxic encephalopathy; J15.69 Pneumonia due to other Gram-negative bacteria; J69.0 Pneumonitis due to inhalation of food and vomit; I50.33 Acute on chronic diastolic (congestive) heart failure; I13.0 Hypertensive heart and chronic kidney disease with heart failure and stage 1 through stage 4 chronic kidney disease, or unspecified chronic kidney disease; D68.69 Other thrombophilia; E03.9 Hypothyroidism, unspecified; E66.01 Morbid (severe) obesity due to excess calories; I48.91 Unspecified atrial fibrillation; E78.5 Hyperlipidemia, unspecified; M31.6 Other giant cell arteritis; F03.90 Unspecified dementia, unspecified severity, without behavioral disturbance, psychotic disturbance, mood disturbance, and anxiety; N18.32 Chronic kidney disease, stage 3b; Z93.3 Colostomy status; Z82.49 Family history of ischemic heart disease and other diseases of the circulatory system; Z83.3 Family history of diabetes mellitus; Z68.30 Body mass index [BMI] 30.0-30.9, adult
CPT/HCPCS: 36415; 70450; 71045; 71250; 80048; 80053; 80061; 80307; 81001; 82607; 82962; 83605; 83880; 84443; 85025; 85610; 85652; 85730; 86141; 86803; 87040; 87081; 87086; 87340; 93306; 96361; 96365; 96368; 96375; 97110; 97116; 97163; 97530; G0378; J2543; J2704